=== PATIENT | female | born 1950 | race Caucasian/White ===

== ENCOUNTER 2023-01-20 14:44 | Outpatient (AMB) | payer MEDICARE, SELFPAY ==
[2023-01-20 14:53] VITALS: BP 140/80; PULSE 61; BMI 30.8
--- NOTE | 2023-01-20 14:53 | HO.NEPHOV ---
HPI HPI Comments History of Present Illness Details Keya was seen in the office in follow-up for acquired solitary kidney and history of renal stones. She has not been very good with keeping up good hydration. She denies taking excess sodium in the diet. She underwent nephrectomy in 1982 for renal cell cancer. She has not had any renal stones since her last office visit. She denies flank pain, hematuria, dysuria, pedal edema, chest pain, shortness of breath, proximal nocturnal dyspnea, orthopnea, pedal edema, weight loss, night sweats. Her kidney stones were calcium oxalate and she tries to maintain a low oxalate diet. She has not had any recent renal imaging. Her renal functions had been stable and the blood pressure is at goal. She is not on any hydrochlorothiazide or potassium citrate. [facility] Medical History (Updated 01/20/23 @ 15:24 by Rakesh Suarez MD) Renal cell cancer Nephrolithiasis Renal cyst Acquired solitary kidney Surgical History (Updated 01/20/23 @ 12:33 by Eleni Jimenez MA) History of nephrectomy Family History (Updated 01/20/23 @ 14:57 by Eleni Jimenez MA) Father Kidney stones (Updated 01/20/23 @ 14:56 by Eleni Jimenez MA) Alcohol intake: never Patient Tobacco Use Status: Never used Tobacco Vital Signs 01/20/23 14:53 Height 5 ft Weight 157 lb 8 oz BMI 30.8 BP 140/80 H Blood Pressure Location Lt brachial Position Sitting Pulse 61 Pulse Source Pulse Oximeter Physical Exam Vital Signs: Last Vital Signs Pulse 61 01/20/23 14:53 BP 140/80 H 01/20/23 14:53 BMI result Body Mass Index 30.8 Const General: comfortable and no acute distress Orientation/consciousness: patient oriented x3 HEENT Head: Yes normocephalic Mouth: Normal oral and palatal mucosa present Eyes EOM: EOMs intact bilaterally Neck Neck: Yes supple Resp Auscultation: clear to auscultation bilaterally Cardio Jugular venous distension: no JVD Rate: regular rate GI Palpation (GI): Soft to palpation Auscultation: normal bowel sounds General: Yes no CVA tenderness Back/Spine/Pelvis Back: no CVA tenderness Skin General skin exam: no rashes or lesions noted Neuro General: patient oriented x3 and moves all extremities Extrem General: Yes no pedal edema Assessment & Plan Assessment & Plan (1) Nephrolithiasis: Code(s): N20.0 - Calculus of kidney (2) Acquired solitary kidney: Code(s): Z90.5 - Acquired absence of kidney Plan Keya has acquired solitary kidney after nephrectomy for renal cell cancer in 1982. She had developed nephrolithiasis in her remaining solitary kidney. Her renal stone was calcium oxalate. She had had undergone 24 urine collections in the past. She is not taking any hydrochlorothiazide or potassium citrate. She is not good with maintaining good hydration which I encouraged. She should maintain low-sodium diet, minimize animal protein and increase fruits and vegetables in her diet. Her blood pressure has been at goal. I will order follow-up blood work and urine studies. I will arrange a follow-up renal ultrasound after next visit. She will need a 24 urine collection which I plan to do at the next office visit. All her and her 's questions were answered. Time spent for retrieving data, patient encounter and documentation 23 minutes. Orders: Orders Electrolytes 01/20/23 N20.0 - Calculus of kidney, Z90.5 - Acquired absence of kidney Blood Urea Nitrogen 01/20/23 N20.0 - Calculus of kidney, Z90.5 - Acquired absence of kidney Creatinine 01/20/23 N20.0 - Calculus of kidney, Z90.5 - Acquired absence of kidney Calcium 01/20/23 N20.0 - Calculus of kidney, Z90.5 - Acquired absence of kidney UA w Microscopic 01/20/23 N20.0 - Calculus of kidney, Z90.5 - Acquired absence of kidney Protein Creatinine Ratio, Ur 01/20/23 N20.0 - Calculus of kidney, Z90.5 - Acquired absence of kidney PTHI 01/20/23 N20.0 - Calculus of kidney, Z90.5 - Acquired absence of kidney Coding Level of Care Code Est Pt Level 3 (11496) Diagnoses Nephrolithiasis N20.0 Acquired solitary kidney Z90.5
== END 2023-01-20 15:44 | disposition home or self-care (01) ==
PROVIDERS: PCP Family Medicine; Visit Provider Internal Medicine Nephrology
DX: N20.0 Calculus of kidney (principal); Z90.5 Acquired absence of kidney
CPT/HCPCS: 99213

== ENCOUNTER → 2023-01-20 14:44 | Outpatient (BNVA) | payer MEDICARE, SELFPAY | PROVIDERS: PCP Family Medicine; Visit Provider Internal Medicine Nephrology | DX: N20.0 Calculus of kidney (principal); Z90.5 Acquired absence of kidney | CPT/HCPCS: 99212 ==

== ENCOUNTER 2023-08-11 11:58 | Outpatient (AMB) | payer MEDICARE, SELFPAY ==
--- NOTE | 2023-08-11 12:33 | HO.NEPHOV_ITS ---
Vital Signs 08/11/23 12:34 Height 5 ft Weight 156 lb 2 oz BMI 30.5 BP 108/70 Blood Pressure Location Lt brachial Position Sitting Pulse 54 Pulse Source Pulse Oximeter Pulse Oximetry (%) 98 Oxygen Delivery Method Room Air Intake Visit Reasons: Gout? Pt req sooner appt/ Conf Washer Repairman Required: No Accompanied by: Spouse Allergies No Known Allergies Allergy (Verified 08/11/23 12:38) HPI Comments Details: Keya was seen in the office in follow-up for acquired solitary kidney and history of renal stones. She recently had gout on her foot. Her uric acid was 6.6 and never had gout before. She has been better with keeping up good hydration. She denies taking excess sodium in the diet. She underwent nephrectomy in 1982 for renal cell cancer. She has not had any renal stones ( calcium oxalate) since her last office visit. She denies flank pain, hematuria, dysuria, pedal edema, chest pain, shortness of breath, proximal nocturnal dyspnea, orthopnea, pedal edema, weight loss, night sweats. she tries to maintain a low oxalate diet. She has not had any recent renal imaging. She had low vitamin D with high PTH levels. She is on Vitamin D replacement. Her renal functions had been stable and the blood pressure is at goal. She is not on any hydrochlorothiazide or potassium citrate. [facility] Medical History (Updated 08/11/23 @ 13:43 by Rakesh Suarez MD) Elevated hemoglobin A1c Prediabetes Renal cell cancer Nephrolithiasis Renal cyst Acquired solitary kidney Surgical History History of nephrectomy Family History Father Kidney stones Social History Alcohol intake: never Patient Tobacco Use Status: Never used Tobacco Physical Exam Vital Signs: Last Vital Signs Pulse 54 08/11/23 12:34 BP 108/70 08/11/23 12:34 Pulse Ox 98 08/11/23 12:34 Oxygen Delivery Method Room Air 08/11/23 12:34 BMI result Body Mass Index 30.5 Const General: comfortable and no acute distress Orientation/consciousness: patient oriented x3 HEENT Head: Yes normocephalic Mouth: Normal oral and palatal mucosa present Eyes EOM: EOMs intact bilaterally Neck Neck: Yes supple Resp Auscultation: clear to auscultation bilaterally Cardio Jugular venous distension: no JVD Rate: regular rate GI Palpation (GI): Soft to palpation Auscultation: normal bowel sounds General: Yes no CVA tenderness Back/Spine/Pelvis Back: no CVA tenderness Skin General skin exam: no rashes or lesions noted Neuro General: patient oriented x3 and moves all extremities Extrem General: Yes no pedal edema Results Reviewed Nephrology Results: No Data to Display Assessment & Plan Assessment & Plan (1) Acquired solitary kidney: Code(s): Z90.5 - Acquired absence of kidney Category: Medical (2) Nephrolithiasis: Code(s): N20.0 - Calculus of kidney Category: Medical (3) Hyperuricemia: Code(s): E79.0 - Hyperuricemia without signs of inflammatory arthritis and tophaceous disease Category: Medical Plan Keya has acquired solitary kidney after nephrectomy for renal cell cancer in 1982. She had developed nephrolithiasis in her remaining solitary kidney. Her renal stone was calcium oxalate. She had had undergone 24 urine collections in the past. She is not taking any hydrochlorothiazide or potassium citrate. She has improved her hydration which I encouraged to continue. She should maintain low-sodium diet, minimize animal protein and increase fruits and vegetables in her diet. Her blood pressure has been at goal. I will order follow-up blood work including uric acid. I asked her not to take NSAID's. I gave her 5 tablets of prednisone , in the event she has flar eup of gout. I shall start her on Allopurinol if she has ongoing hyper uricemia issues. She has Vitamin D deficiency which has been replaced. I shall look into her parathyroid if levels remain high even after Vitamin D has normalized. I will arrange a follow-up renal ultrasound after next visit. All her and her 's questions were answered. Orders: Orders Uric Acid Today N20.0 - Calculus of kidney, Z90.5 - Acquired absence of kidney Parathyroid Hormone Intact Today N20.0 - Calculus of kidney, Z90.5 - Acquired absence of kidney Creatinine Today N20.0 - Calculus of kidney, Z90.5 - Acquired absence of kidney Blood Urea Nitrogen Today N20.0 - Calculus of kidney, Z90.5 - Acquired absence of kidney Electrolytes Today N20.0 - Calculus of kidney, Z90.5 - Acquired absence of kidney Calcium Today N20.0 - Calculus of kidney, Z90.5 - Acquired absence of kidney Vitamin D 25-OH Total Today N20.0 - Calculus of kidney, Z90.5 - Acquired absence of kidney Medications: New prednisone 20 mg PO DAILY 5 days 5 tabs 0RF Coding Level of Care Code Est Pt Level 4 (12990) Diagnoses Acquired solitary kidney Z90.5 Nephrolithiasis N20.0 Hyperuricemia E79.0
[2023-08-11 12:34] VITALS: BP 108/70; PULSE 54; O2SAT 98; BMI 30.5
== END 2023-08-11 13:00 | disposition home or self-care (01) ==
PROVIDERS: PCP Family Medicine; Visit Provider Internal Medicine Nephrology
DX: Z90.5 Acquired absence of kidney (principal); N20.0 Calculus of kidney; E79.0 Hyperuricemia without signs of inflammatory arthritis and tophaceous disease
CPT/HCPCS: 99214

== ENCOUNTER → 2023-08-11 11:58 | Outpatient (BNVA) | payer MEDICARE, SELFPAY | PROVIDERS: PCP Family Medicine; Visit Provider Internal Medicine Nephrology | DX: N20.0 Calculus of kidney (principal); E79.0 Hyperuricemia without signs of inflammatory arthritis and tophaceous disease; Z85.528 Personal history of other malignant neoplasm of kidney; Z90.5 Acquired absence of kidney | CPT/HCPCS: 99212 ==

== ENCOUNTER 2024-01-19 13:30 | Outpatient (AMB) | payer MEDICARE, SELFPAY ==
--- NOTE | 2024-01-19 13:37 | HO.NEPHOV_ITS ---
Vital Signs 01/19/24 13:38 Height 5 ft Weight 158 lb 8 oz BMI 31.0 BP 134/68 Blood Pressure Location Lt brachial Position Sitting Pulse 52 Pulse Source Pulse Oximeter Pulse Oximetry (%) 92 Oxygen Delivery Method Room Air Intake Visit Reasons: 1 yr fu w/ labs-Conf Public Health Social Worker Required: No Accompanied by: Spouse Allergies No Known Allergies Allergy (Verified 01/19/24 13:38) HPI Comments Details: Keya was seen in the office in follow-up for acquired solitary kidney and history of renal stones. She recently had gout on her foot. Her uric acid was 6.6 and never had gout before. She has been better with keeping up good hydration. She denies taking excess sodium in the diet. She underwent nephrectomy in 1982 for renal cell cancer. She has not had any renal stones ( calcium oxalate) since her last office visit. She denies flank pain, hematuria, dysuria, pedal edema, chest pain, shortness of breath, proximal nocturnal dyspnea, orthopnea, pedal edema, weight loss, night sweats. she tries to maintain a low oxalate diet. She has not had any recent renal imaging. She had low vitamin D. She is on Vitamin D replacement. Her renal functions had been stable and the blood pressure is at goal. She is not on any hydrochlorothiazide or potassium citrate [facility] Medical History (Updated 08/11/23 @ 13:43 by Rakesh Suarez MD) Elevated hemoglobin A1c Prediabetes Renal cell cancer Nephrolithiasis Renal cyst Acquired solitary kidney Surgical History History of nephrectomy Family History Father Kidney stones Social History Alcohol intake: never Patient Tobacco Use Status: Never used Tobacco Review of Systems Const All systems reviewed & are unremarkable except as noted in HPI and below Physical Exam Const General: comfortable and no acute distress Orientation/consciousness: patient oriented x3 HEENT Head: Yes normocephalic Mouth: Normal oral and palatal mucosa present Eyes EOM: EOMs intact bilaterally Neck Neck: Yes supple Resp Auscultation: clear to auscultation bilaterally Cardio Jugular venous distension: no JVD Rate: regular rate GI Palpation (GI): Soft to palpation Auscultation: normal bowel sounds General: Yes no CVA tenderness Back/Spine/Pelvis Back: no CVA tenderness Skin General skin exam: no rashes or lesions noted Neuro General: patient oriented x3 and moves all extremities Extrem General: Yes no pedal edema Results Reviewed Nephrology Results: No Data to Display Assessment & Plan Assessment & Plan (1) Acquired solitary kidney: Code(s): Z90.5 - Acquired absence of kidney Category: Medical (2) Nephrolithiasis: Code(s): N20.0 - Calculus of kidney Category: Medical (3) Hyperuricemia: Code(s): E79.0 - Hyperuricemia without signs of inflammatory arthritis and tophaceous disease Category: Medical Plan Keya has acquired solitary kidney after nephrectomy for renal cell cancer in 1982. She had developed nephrolithiasis in her remaining solitary kidney. Her renal stone was calcium oxalate. She had had undergone 24 urine collections in the past. She is not taking any hydrochlorothiazide or potassium citrate. She has improved her hydration which I encouraged to continue. She should maintain low-sodium diet, minimize animal protein and increase fruits and vegetables in her diet. Her blood pressure has been at goal. Her uric acid is better . I asked her not to take NSAID's. I shall start her on Allopurinol if she has ongoing hyper uricemia issues. She has Vitamin D deficiency is being replaced. I will arrange a follow-up renal ultrasound after next visit. All her and her 's questions were answered Orders: Orders Uric Acid 1 Year E79.0 - Hyperuricemia without signs of inflammatory arthritis and tophaceous disease, N20.0 - Calculus of kidney, Z90.5 - Acquired absence of kidney Creatinine 1 Year E79.0 - Hyperuricemia without signs of inflammatory arthritis and tophaceous disease, N20.0 - Calculus of kidney, Z90.5 - Acquired absence of kidney Electrolytes 1 Year E79.0 - Hyperuricemia without signs of inflammatory arthritis and tophaceous disease, N20.0 - Calculus of kidney, Z90.5 - Acquired absence of kidney Calcium 1 Year E79.0 - Hyperuricemia without signs of inflammatory arthritis and tophaceous disease, N20.0 - Calculus of kidney, Z90.5 - Acquired absence of kidney Protein Creatinine Ratio, Ur 1 Year E79.0 - Hyperuricemia without signs of inflammatory arthritis and tophaceous disease, N20.0 - Calculus of kidney, Z90.5 - Acquired absence of kidney Blood Urea Nitrogen 1 Year E79.0 - Hyperuricemia without signs of inflammatory arthritis and tophaceous disease, N20.0 - Calculus of kidney, Z90.5 - Acquired absence of kidney Coding Level of Care Code Est Pt Level 4 (46295) Diagnoses Acquired solitary kidney Z90.5 Nephrolithiasis N20.0 Hyperuricemia E79.0
[2024-01-19 13:38] VITALS: BP 134/68; PULSE 52; O2SAT 92; BMI 31.0
== END 2024-01-19 14:03 | disposition home or self-care (01) ==
PROVIDERS: PCP Family Medicine; Visit Provider Internal Medicine Nephrology
DX: Z90.5 Acquired absence of kidney (principal); N20.0 Calculus of kidney
CPT/HCPCS: 99214

== ENCOUNTER → 2024-01-19 13:30 | Outpatient (BNVA) | payer MEDICARE, SELFPAY | PROVIDERS: PCP Family Medicine; Visit Provider Internal Medicine Nephrology | DX: Z90.5 Acquired absence of kidney (principal); N20.0 Calculus of kidney; E79.0 Hyperuricemia without signs of inflammatory arthritis and tophaceous disease | CPT/HCPCS: 99212 ==

== ENCOUNTER 2025-02-16 15:19 | Outpatient (REF) | payer MEDICARE, SELFPAY | END 2025-02-16 15:20 | disposition home or self-care (01) | LOC: HO.HKASLDS 15:19 | PROVIDERS: PCP Family Medicine; Visit Provider Internal Medicine Nephrology | DX: R80.8 Other proteinuria (principal); Z90.5 Acquired absence of kidney | CPT/HCPCS: 99212 ==

== ENCOUNTER 2025-02-16 15:19 | Outpatient (AMB) | payer MEDICARE, SELFPAY ==
--- NOTE | 2025-02-16 15:48 | HO.NEPHOV ---
Vital Signs 02/16/25 15:49 Height 5 ft Weight 167 lb BMI 32.6 BP 150/80 H Blood Pressure Location Lt brachial Position Sitting Pulse 56 Pulse Source Pulse Oximeter Pulse Oximetry (%) 99 Oxygen Delivery Method Room Air Intake Visit Reasons: 1yr follow up-Conf Metallurgical Analyst Required: No Accompanied by: Spouse Allergies No Known Allergies Allergy (Verified 02/16/25 15:49) HPI Comments Details: Keya was seen in the office in follow-up for acquired solitary kidney and history of renal stones. She has H/O gout. She has been better with keeping up good hydration. She denies taking excess sodium in the diet. She underwent nephrectomy in 1982 for renal cell cancer. She has not had any renal stones ( calcium oxalate) since her last office visit. She denies flank pain, hematuria, dysuria, pedal edema, chest pain, shortness of breath, proximal nocturnal dyspnea, orthopnea, pedal edema, weight loss, night sweats. she tries to maintain a low oxalate diet. She has not had any recent renal imaging. Her renal functions had been stable but has been having some proteinuria. She is not on any hydrochlorothiazide or potassium citrate [facility] Medical History (Updated 02/16/25 @ 20:15 by Rakesh Suarez MD) Elevated hemoglobin A1c Prediabetes Renal cell cancer Nephrolithiasis Renal cyst Acquired solitary kidney Surgical History History of nephrectomy Family History Father Kidney stones Social History Alcohol intake: never Patient Tobacco Use Status: Never used Tobacco Review of Systems Const All systems reviewed & are unremarkable except as noted in HPI and below Physical Exam Vital Signs: Last Vital Signs Pulse 56 02/16/25 15:49 BP 150/80 H 02/16/25 15:49 Pulse Ox 99 02/16/25 15:49 Oxygen Delivery Method Room Air 02/16/25 15:49 BMI result Body Mass Index 32.6 Const General: comfortable and no acute distress Orientation/consciousness: patient oriented x3 HEENT Head: Yes normocephalic Mouth: Normal oral and palatal mucosa present Eyes EOM: EOMs intact bilaterally Neck Neck: Yes supple Resp Auscultation: clear to auscultation bilaterally Cardio Jugular venous distension: no JVD Rate: regular rate GI Palpation (GI): Soft to palpation Auscultation: normal bowel sounds General: Yes no CVA tenderness Back/Spine/Pelvis Back: no CVA tenderness Skin General skin exam: no rashes or lesions noted Neuro General: patient oriented x3 and moves all extremities Extrem General: Yes no pedal edema Assessment & Plan Assessment & Plan (1) Acquired solitary kidney: Code(s): Z90.5 - Acquired absence of kidney Category: Medical (2) Proteinuria: Code(s): R80.9 - Proteinuria, unspecified Category: Medical Qualifiers: Proteinuria type: other Qualified Code(s): R80.8 - Other proteinuria Plan Keya has acquired solitary kidney after nephrectomy for renal cell cancer in 1982. She had developed nephrolithiasis in her remaining solitary kidney. Her renal stone was calcium oxalate. She had undergone 24 urine collections in the past. She is not taking any hydrochlorothiazide or potassium citrate. She has improved her hydration which I encouraged to continue. She should maintain low-sodium diet, minimize animal protein and increase fruits and vegetables in her diet. Her blood pressure has been at goal. I asked her not to take NSAID's. I have ordered 24 hour urine for protein as she is at risk for hyperfiltration. She will need further W/U if she has protienuria in addition to initiation of ACEI/ARB. I shall start her on Allopurinol if she has ongoing hyper uricemia issues. She has Vitamin D deficiency which was replaced. I will arrange a follow-up renal ultrasound after next visit. All her and her 's questions were answered Orders: Orders Protein, 24 Hr Urine Group 3 Months R80.9 - Proteinuria, unspecified, Z90.5 - Acquired absence of kidney Coding Level of Care Code Est Pt Level 4 (47106) Diagnoses Acquired solitary kidney Z90.5 Other proteinuria R80.8 Proteinuria type: other
[2025-02-16 15:49] VITALS: BP 150/80; PULSE 56; O2SAT 99; BMI 32.6
--- OUTSIDE RECORDS SUMMARY | 2025-02-16 22:53 | XMS_ITS ---
Author Name [facility] Organization Unknown History of Medication Use Medication Directions Dispensed Refills Start Date End Date Stat us betamethasone acetate-betamethason e sodium phosphate (CELESTONE) injection 12 mg 12 mg, Intra-articular, Once PRN Procedure, Starting on Thu07/26/24 at 1330, For 1 dose 07/26/2024 07/26/2024 completed rosuvastatin (CRESTOR) 10 MG tablet Take 1 tablet by mouth every evening. active Vitamin D3 (CHOLECALCIFEROL) 50 MCG (1999 [place]) capsule Take 1 capsule by mouth daily. active Problems Problem Status Onset Date Problem Type Date of Resoluti on Source Trochanteric bursitis of right hip active EncounterDiagnosisAct CCT Encounters Encounter Type Encounter Reason Primary Diagnosis Location Date Ambulatory Trochanteric bursitis, right hip Trochanteric bursitis, right hip [place] [facility] 10/18/2024 Ambulatory [place] [facility] 07/26/2024 Ambulatory Trochanteric bursitis, right hip Trochanteric bursitis, right hip [place] [facility] 07/26/2024 Ambulatory [place] [facility] 06/29/2024 Ambulatory [facility] 06/21/2024 Ambulatory [facility] 06/21/2024 Ambulatory [place] [facility] 12/30/2023 Ambulatory Cataract Cataract [facility] 12/09/2023 Ambulatory CREATE 1 Age-related nuclear cataract right eye [facility] [place] 12/01/2023 Ambulatory MODIFY Age-related nucl ear cataract Left eye [facility] [place] 11/24/2023 Care Team Organization Name Specialty Phone Email Start Date End [place] te [facility] 07/01/2024 11/16/2024 [place] [facility] 12/30/2023 [facility] 12/09/2023 11/16/2024 [facility] 11/20/2023 [facility] [place] 10/30/2023
--- OUTSIDE RECORDS SUMMARY | 2025-02-16 22:53 | XMS_ITS | Clinical Summary ---
Author Organization [facility] Address [address] [place] [address] Care Team Providers Care Slab Polisher Name Role Phone Patrice Clayton MD Primary Care Provider [phone] Allergies No known active allergies Medications Vitamin D3 (CHOLECALCIFERO L) 50 MCG (1999) capsule Take 1 capsule by mouth daily. Active rosuvastatin (CRESTOR) 10 MG tablet Take 1 tablet by mouth every evening. Active Active Problems No known active problems Social History Tobacco Use Types Packs/Day Years Used Date Smoking Tobacco: Never Assessed Comments Unknown Sex and Gender Information Value Date Recorded Sex Assigned at Female 07/24/2024 10:32 AM EDT Legal Sex Female 10:52 AM EST Gender Identity Female 07/24/2024 10:32 AM EDT Sexual Orientation Heterosexual (straight) 07/24 10:32 AM EDT Last Filed Vital Signs Vital Sign Reading Time Taken Comments Blood Pressure - - Pulse - - Temperature - - Respiratory Rate - - Oxygen Saturation - - Inhaled Oxygen Concentration - - Weight 72.6 kg (160 lb) 07/28/2024 10:03 PM EDT Height 152.4 cm (5') 07/28/2024 10:03 PM EDT Body Mass Index 31.25 07/28/2024 10:03 PM EDT Plan of Treatment Health Maintenance Due Date Last Done Comments Advance Care Planning 1950 Hepatitis C Virus Screening 1950 DTaP/Tdap/Td Vaccines (1 - Tdap) 1969 Mammogram 1990 Colonoscopy 10/10/1995 Pneumococcal Vaccines 50+ (1 of 1 - PCV) 2000 Zoster (Shingles) Vaccine (1 of 2) 2000 DXA Bone Density (Females,Ages 65 and older) 10/08/2022 10/08/2020 Influenza Vaccine 10/07/2024 03/16/2024 COVID-19 Vaccine (3 - 2024-2 6 season) 2024 06/08/2020, 05/18/2020 RSV Vaccine 50 years and older and Patients (1 - 1-dose 75+ series) 2025 Hepatitis B Vaccines Aged Out No long er eligible based on patient's age to complete this topic Insurance MEDICARE PART A & B [facility] MEDICARE PART A & B Care Teams Slab Polisher Relationship Specialty Start Date End Date Patrice Clayton MD [address] [address] PCP - General Family Medicine 12/30/23
--- OUTSIDE RECORDS SUMMARY | 2025-02-16 22:53 | XMS_ITS | Data Portability ---
Author Organization [facility], Main Office Address [address] [place] [address] Care Team Providers Care Plant Nursery Worker Name Role Phone NASRIN CASTELLANO Event Manager MORAGA DERMATOLOGY Machine Applicator Cementer BLAINE PRATER Engineering Group Manager AGA LAGUNAS Primary Care Provider KOURTNEY MOTA Cigar Inspector DAMIÁN SUAREZ Breaking Machine Operator YUMIKO RUTLEDGE Digital Intern NASRIN SOL Die Welder Assessment Encounter Date Assessment Date Assessment LastModified by Organization Details LastModified Time 11/12/2023 11/12/2023 Patient is at lo w risk for cardiopulmonary complications with planned procedure based on comorbidities, good exertional tolerance and overall procedure risk. Patient advised to avoid aspirin for 14 days and NSAIDS for 7 days prior. May proceed to scheduled surgery as planned. 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 The exam findings appear more consistent with right hip impingement and gluteal tendinopathy, which are her most bothersome symptoms at this time. I am referring her to orthopedics to evaluate for possible injection therapy, and I also recommended initiating physical therapy. Her knee is not currently a significant source of discomfort, so we will monitor it for now. However, I still advised her to establish care with orthopedics in case injection therapy is needed in the future. Due to her mild renal impairment, we are limiting NSAID use as much as possible. She also reports anterior thigh pain with a burning sensation. To assess for a possible hernia, I have ordered a right hip/groin ultrasound. Her blood pressure today was borderline; she brought in four recent readings, which were quite variable. However, she did not bring her home cuff, so accuracy could not be verified. Her current readings remain within JNC 8 guidelines, so we will monitor for now. If future readings through [facility] trend high, adjustments to her treatment plan may be necessary. I advised her to bring her home blood pressure cuff to her next visit to assess accuracy. We will follow up in September, and I reminded her to bring the cuff at that time. We also discussed lifestyle modifications, including gradual improvements in her diet and increased physical activity, which should help with blood pressure control. Additionally, she has a known leg length discrepancy, with the right leg shorter than the left. Fortunately, her X-ray showed no evidence of dislocation or fracture. This discrepancy may be contributing to her symptoms. I recommended that she consider seeing a cloth mercerizer operator to evaluate for potential benefit from shoe inserts or orthotics. [email or web address] Not available 06/06/2024 17:19:24 09/13/2024 09/13/2024 Hypertension: -Continue monitoring off anti hypertensive. -Blood pressure is well controlled both at home and in the office. Home cuff was compared. -Reinforced lifestyle measures: regular exercise and salt restriction. -Will reassess at her upcoming physical exam. Musculoskeletal Pain: -Under orthopedic care for hip and knee pain. -Physical therapy to be initiated. -Referral to podiatry provided for further evaluation of limb length discrepancy. [email or web address] Not available 09/14/2024 08:12:37 Plan of Treatment Reminders Order Date Submit Date Provider Last Modified By Organization Details Last Modified Time Details Appointments [id number] 2025 02:00P M Aga Lagunas MD Not available Not available Not available Lab HbA1c (hemoglob in A1c), blood 2024 025 RONNY [facility] (Centralized Electronic Ordering - All Locations), Patient Can Go To The Location Of Their Choice, [id number] 03/17/2024 06:08:16 TSH, ultra-sen sitive, serum 01/08/ 2025 01/08/2 025 RONNY [facility] (Centralized Electronic Ordering - All Locations), Patient Can Go To The Location Of Their Choice, 03/17/2024 06:08:17 CMP, serum or plasma 2024 025 RONNY [facility] (Centralized Electronic Ordering - All Locations), Patient Can Go To The Location Of Their Choice, 03/17/2024 06:08:15 lipid panel, serum 2024 025 RONNY [facility] (Centralized Electronic Ordering - All Locations), Patient Can Go To The Location Of Their Choice, 03/17/2024 06:08:16 CBC w/ auto diff 2023 024 RONNY [facility] (Centralized Electronic Ordering - All Locations), Patient Can Go To The Location Of Their Choice, 11/13/2023 06:09:16 BMP, serum or plasma 2023 024 RONNY [facility] (Centralized Electronic Ordering - All Locations), Patient Can Go To The Location Of Their Choice, 11/13/2023 06:09:17 anaplasma phagocyto philum + ehrlichia chaffeens is IgG panel, titer, serum 2023 024 RONNY [facility] (Centralized Electronic Ordering - All Locations), Patient Can Go To The Location Of Their Choice, 08/07/2023 14:07:35 borrelia burgdorfe ri IgG + IgM + total panel, IA, serum 2023 024 RONNY [facility] (Centralized Electronic Ordering - All Locations), Patient Can Go To The Location Of Their Choice, 08/04/2023 11:28:15 BMP, serum or plasma 2023 024 RONNY [facility] (Centralized Electronic Ordering - All Locations), Patient Can Go To The Location Of Their Choice, 08/07/2023 14:07:33 uric acid, serum or plasma 2023 024 RONNY [facility] (Centralized Electronic Ordering - All Locations), Patient Can Go To The Location Of Their Choice, 08/07/2023 14:07:35 CBC w/ auto diff 2023 024 CALVIN [facility] (Centralized Electronic Ordering - All Locations), Patient Can Go To The Location Of Their Choice, [id number] 08/07/2023 14:07:34 Referral podiatris t referral 2024 025 [facility], [address], [address], [place], [address], 09/15/2024 14:17:44 physical therapist referral - Suspected hip impingeme nt, demonstra david by long stride test and fabers, some gluteal tendinopa thy. 2024 025 [email or web address] Not available 10/06/2024 09:38:52 orthopedi c surgeon referral 2024 025 CALVIN [facility], [address], [address], [place], [address], 07/29/2024 08:21:05 care managemen t referral - Please set up RPM with BP monitor 2024 025 [email or web address] 5 [facility], [address], [address], [place], [address], 06/07/2024 15:54:48 gastroent erologist referral - Needs colon cancer screening 2024 025 [facility], [address], [place], [address], 03/17/2024 10:01:08 nutrition ist/dieti james referral - hx nephrecto my, only one kidney. needs renal dietitian , pre diabetes, weight . 2023 024 [email or web address] Not available 08/04/2023 11:37:38 Procedures colonosco py screening (PROC) 2024 025 pura [facility], [address], [place], [address], 03/17/2024 09:38:48 Surgeries None recorded. Imaging US, buttock - US butt pelvis eval for right sided hernia. 2024 025 [facility] (Ultrasound), [address], [place], [address], 06/14/2024 09:18:49 XR, hip + pelvis, unilatera l, 2 or 3 view 2024 025 RONNY In-Office Order, Internal Use Only DO Not Attach Compendium DO Not Attach Compendium, Do Not Delete/merge, [id number] 03/17/2024 09:15:39 XR, knee, 3 view 2024 025 RONNY In-Office Order, Internal Use Only DO Not Attach Compendium DO Not Attach Compendium, Do Not Delete/merge, [id number] 03/16/2024 19:45:50 XR, knee, 3 view 2024 025 RONNY In-Office Order, Internal Use Only DO Not Attach Compendium DO Not Attach Compendium, Do Not Delete/merge, [id number] 03/16/2024 19:47:31 electroca rdiogram 2023 024 [email or web address] In-Office Order, Internal Use Only DO Not Attach Compendium DO Not Attach Compendium, Do Not Delete/merge, [id number] 11/12/2023 09:13:17 Medication Orders None recorded. Patient TargetsNo targets recorded. Patient Instructions Encounter Date Encounter Id Patient Instructions Last Modified By Organization Details Last Modified Time 08/04/2023 [id number] When You Want to Lose Weight: Care Instructions [email or web address] Not available 08/04/2023 11:35:16 Nutrition Referral and Weight Management Follow-up Information [email or web address] Not available 08/04/2023 11:35:16 purine-restricte d diet: care instructions [email or web address] Not available 08/04/2023 11:31:11 To call or retur n for worsening or concerns [email or web address] Not available 08/04/2023 11:28:19 03/16/2024 [id number] advance care planning: care instructions [email or web address] Not available 03/16/2024 12:13:11 restless legs syndrome: care instructions [email or web address] Not available 03/16/2024 12:13:10 high cholesterol : care instructions [email or web address] Not available 03/16/2024 12:13:11 preventing falls : care instructions [email or web address] Not available 03/16/2024 12:13:10 well visit, over 65: care instructions [email or web address] Not available 03/16/2024 12:13:11 learning about colon cancer [email or web address] Not available 03/16/2024 12:13:10 Reason for Referral Cane Packer/dietitian Refer ral for Body mass index 25-29 - overweight hx nephrectomy, only one kidney. needs renal dietitian, pre diabetes, weight . Referring Physician: [facility], Encounter Date: 08/04/2023 Event Manager Referral for Screening for malignant neoplasm of colon Needs colon cancer screening Referring Physician: Aga Lagunas [facility], Encounter Date: 03/16/2024 Please set up RPM with BP tiana san Referring Physician: Aga Lagunas [facility], Encounter Date: 06/06/2024 Physical Therapist Referral for Pain of right hip joint Suspected hip impingement, demonstrated by long stride test and fabers, some gluteal tendinopathy. Referring Physician: Aga Laguans [facility] Arlene, Encounter Date: 06/06/2024 Orthopedic Surgeon Referral for Pain of right hip joint Referring Physician: Aga Lagunas [facility] Arlene, Encounter Date: 06/06/2024 Wildlife Conservation Professor Referral for Leg length inequality Referring Physician: Aga Lagunas [facility] Arlene, Encounter Date: 09/13/2024 Results Created Date Observation Date Name Description Value Unit Range Abnormal Flag Note LastModifiedBy Organization Detail LastModifiedTime 08/04/19 24 08/04/2023 BMP7+ EGFR glucose 89 mg/dL 70-99 Not Available [facility] ([facility]) [address], [place], [address], 08/07/2023 14:07:33 08/04/19 24 08/04/2023 BMP7+ EGFR BUN 18 mg/dL 8-27 Not Available [facility] ([facility]) [address], [place], [address], 08/07/2023 14:07:33 08/04/19 24 08/04/2023 BMP7+ EGFR creatinine 0.90 mg/dL 0.57-1 .00 Not Available [facility] ([facility]) [address], [place], [address], 08/07/2023 14:07:33 08/04/19 24 08/04/2023 BMP7+ EGFR eGFR 68 mL/mi n/1.7 3 >59 Not Available [facility] ([facility]) [address], [place], [address], 08/07/2023 14:07:33 08/04/19 24 08/04/2023 BMP7+ EGFR sodium 141 mmol/ L 134-14 4 Not Available [facility] ([facility]) [address], [place], [address], 08/07/2023 14:07:33 08/04/19 24 08/04/2023 BMP7+ EGFR potassium 4.6 mmol/ L 3.5-5. 2 Not Available [facility] ([facility]) [address], [place], [address], 08/07/2023 14:07:33 08/04/19 24 08/04/2023 BMP7+ EGFR chloride 103 mmol/ L 96-106 Not Available [facility] ([facility]) [address], [place], [address], 08/07/2023 14:07:33 08/04/19 24 08/04/2023 BMP7+ EGFR carbon dioxide, total 23 mmol/ L 20-29 Not Available [facility] ([facility]) [address], [place], [address], 08/07/2023 14:07:33 08/04/19 24 08/04/2023 CBC WITH DIFFE RENTI AL/PL ATELE T WBC 6.4 x10e3 /uL 3.4-10 .8 Not Available [facility] ([facility]) [address], [place], [address], 08/07/2023 14:07:34 08/04/19 24 08/04/2023 CBC WITH DIFFE RENTI AL/PL ATELE T RBC 4.55 x10e6 /uL 3.77-5 .28 Not Available [facility] ([facility]) [address], [place], [address], 08/07/2023 14:07:34 08/04/1908/04/2023 CBC WITH DIFFE RENTI AL/PL ATELE T hemoglobin 13.3 g/dL 11.1-1 5.9 Not Available [facility] ([facility]) [address] [place], [address], 08/07/2023 14:07:34 08/04/19 24 08/04/2023 CBC WITH DIFFE RENTI AL/PL ATELE T hematocrit 42.2 % 34.0-4 6.6 Not Available [facility] ([facility]) [address] [place], [address], 08/07/2023 14:07:34 08/04/19 24 08/04/2023 CBC WITH DIFFE RENTI AL/PL ATELE T MCV 93 fL 79-97 Not Available [facility] ([facility]) [address] [place], [address], 08/07/2023 14:07:34 08/04/19 24 08/04/2023 CBC WITH DIFFE RENTI AL/PL ATELE T MCH 29.2 pg 26.6-3 3.0 Not Available [facility] ([facility]) [address] [place], [address], 08/07/2023 14:07:34 08/04/19 24 08/04/2023 CBC WITH DIFFE RENTI AL/PL ATELE T MCHC 31.5 g/dL 31.5-3 5.7 Not Available [facility] ([facility]) [address], [place], [address], 08/07/2023 14:07:34 08/04/19 24 08/04/2023 CBC WITH DIFFE RENTI AL/PL ATELE T RDW 12.8 % 11.7-1 5.4 Not Available [facility] ([facility]) [address], [place], [address], 08/07/2023 14:07:34 08/04/19 24 08/04/2023 CBC WITH DIFFE RENTI AL/PL ATELE T platelets 264 x10e3 /uL 150-45 0 Not Available [facility] ([facility]) [address], [place], [address], 08/07/2023 14:07:34 08/04/19 24 08/04/2023 CBC WITH DIFFE RENTI AL/PL ATELE T neutrophils 74 % not estab. Not Available [facility] ([facility]) [address], [place], [address], 08/07/2023 14:07:34 08/04/19 24 08/04/2023 CBC WITH DIFFE RENTI AL/PL ATELE T lymphs 16 % not estab. Not Available [facility] ([facility]) [address], [place], [address], 08/07/2023 14:07:34 08/04/19 24 08/04/2023 CBC WITH DIFFE RENTI AL/PL ATELE T monocytes 7 % not estab. Not Available [facility] ([facility]) [address], [place], [address], 08/07/2023 14:07:34 08/04/19 24 08/04/2023 CBC WITH DIFFE RENTI AL/PL ATELE T eos 2 % not estab. Not Available [facility] ([facility]) [address], [place], [address], 08/07/2023 14:07:34 08/04/19 24 08/04/2023 CBC WITH DIFFE RENTI AL/PL ATELE T basos 1 % not estab. Not Available [facility] ([facility]) [address], [place], [address], 08/07/2023 14:07:34 08/04/19 24 08/04/2023 CBC WITH DIFFE RENTI AL/PL ATELE T immature cells FLUSH TESTER Not Available [facility] ([facility]) [address], [place], [address], 08/07/2023 14:07:34 08/04/19 24 08/04/2023 CBC WITH DIFFE RENTI AL/PL ATELE T neutrophils (absolute) 4.8 x10e3 /uL 1.4-7. 0 Not Available [facility] ([facility]) [address], [place], [address], 08/07/2023 14:07:34 08/04/19 24 08/04/2023 CBC WITH DIFFE RENTI AL/PL ATELE T lymphs (absolute) 1.0 x10e3 /uL 0.7-3. 1 Not Available [facility] ([facility]) [address], [place], [address], 08/07/2023 14:07:34 08/04/19 24 08/04/2023 CBC WITH DIFFE RENTI AL/PL ATELE T monocytes(ab solute) 0.4 x10e3 /uL 0.1-0. 9 Not Available [facility] ([facility]) [address] [place], [address], 08/07/2023 14:07:34 08/04/19 24 08/04/2023 CBC WITH DIFFE RENTI AL/PL ATELE T eos (absolute) 0.1 x10e3 /uL 0.0-0. 4 Not Available [facility] ([facility]) [address], [place], [address], 08/07/2023 14:07:34 08/04/19 24 08/04/2023 CBC WITH DIFFE RENTI AL/PL ATELE T baso (absolute) 0.0 x10e3 /uL 0.0-0. 2 Not Available [facility] ([facility]) [address], [place], [address], 08/07/2023 14:07:34 08/04/19 24 08/04/2023 CBC WITH DIFFE RENTI AL/PL ATELE T immature granulocytes 0 % not estab. Not Available [facility] ([facility]) [address], [place], [address], 08/07/2023 14:07:34 08/04/19 24 08/04/2023 CBC WITH DIFFE RENTI AL/PL ATELE T immature grans (abs) 0.0 x10e3 /uL 0.0-0. 1 Not Available [facility] ([facility]) [address], [place], [address], 08/07/2023 14:07:34 08/04/19 24 08/04/2023 CBC WITH DIFFE RENTI AL/PL ATELE T NRBC FLUSH TESTER Not Available [facility] ([facility]) [address], [place], [address], 08/07/2023 14:07:34 08/04/19 24 08/04/2023 CBC WITH DIFFE RENTI AL/PL ATELE T hematology comments: FLUSH TESTER Not Available [facility] ([facility]) [address], [place], [address], 08/07/2023 14:07:34 08/04/19 24 08/04/2023 TICK- BORNE DISEA SE AB PROFI LE result comments: Commen t Antib peggy titer s may be negat po in the first 7-10 days of illne ss. A four- fold rise in IgG antib peggy titer s for Babes ia micro ti, Anapl asma phago cytop hilum , and/o r Ehrli víctor chaff eensi s in paire d sampl es (acut e and conva lesce nt) suppo rts the diagn osis of babes iosis , anapl asmos is, and/o r ehrli chios is, respe ctive ly. Not Available [facility] ([facility]) [address], [place], [address], 08/07/2023 14:07:34 08/04/19 24 08/05/2023 TICK- BORNE DISEA SE AB PROFI LE lyme total antibody fabio Negati ve negati ve Lyme antib odies not detec david. Refle x testi ng is not indic ated. No labor atory evide nce of infec tion with B. burgd orfer i (Lyme disea se). Negat po resul ts may occur in patie nts recen tly infec david (less than or equal to 14 days) with B. burgd orfer i. If recen t infec tion is suspe cted, repea t testi ng on a new sampl e colle cted in 7 to 14 days is recom antonina d. Not Available [facility] ([facility]) [address], [place], [address], 08/07/2023 14:07:34 08/04/19 24 08/06/2023 TICK- BORNE DISEA SE AB PROFI LE E. chaffeensis IgG Negati ve neg:<1 :64 Not Available [facility] ([facility]) [address] [place], [address], 08/07/2023 14:07:34 08/04/19 24 08/06/2023 TICK- BORNE DISEA SE AB PROFI LE A. phagocytophi lum IgG Negati ve neg:<1 :64 Not Available [facility] ([facility]) [address] [place], [address], 08/07/2023 14:07:34 08/04/19 24 08/07/2023 TICK- BORNE DISEA SE AB PROFI LE babesia microti IgG <1:10 neg:<1 :10 Not Available [facility] ([facility]) [address] [place], [address], 08/07/2023 14:07:34 08/04/19 24 08/05/2023 URIC ACID uric acid 6.6 mg/dL 3.1-7. 9 Thera peuti c targe t for gout patie nts: <6.0 Not Available [facility] ([facility]) [address] [place], [address], 08/07/2023 14:07:35 10/22/19 24 10/23/2023 BASIC METAB OLIC PANEL (8) glucose 101 mg/dL 70-99 above high normal Not Available [facility] ([facility]) [address] [place], [address], 10/23/2023 12:06:11 10/22/19 24 10/23/2023 BASIC METAB OLIC PANEL (8) BUN 18 mg/dL 8-27 normal Not Available [facility] ([facility]) [address] [place], [address], 10/23/2023 12:06:11 10/22/19 24 10/23/2023 BASIC METAB OLIC PANEL (8) creatinine 1.06 mg/dL 0.57-1 .00 above high normal Not Available [facility] ([facility]) [address] [place], [address], 10/23/2023 12:06:11 10/22/19 24 10/23/2023 BASIC METAB OLIC PANEL (8) eGFR 55 mL/mi n/1.7 3 >59 below low normal Not Available [facility] ([facility]) [address] [place], [address], 10/23/2023 12:06:11 10/22/19 24 10/23/2023 BASIC METAB OLIC PANEL (8) BUN/creatini ne ratio 17 12-28 normal Not Available [facility] ([facility]) [address] [place], [address], 10/23/2023 12:06:11 10/22/19 24 10/23/2023 BASIC METAB OLIC PANEL (8) sodium 141 mmol/ L 134-14 4 normal Not Available [facility] ([facility]) [address] [place], [address], 10/23/2023 12:06:11 10/22/19 24 10/23/2023 BASIC METAB OLIC PANEL (8) potassium 4.5 mmol/ L 3.5-5. 2 normal Not Available [facility] ([facility]) [address] [place], [address], 10/23/2023 12:06:11 10/22/19 24 10/23/2023 BASIC METAB OLIC PANEL (8) chloride 102 mmol/ L 96-106 normal Not Available [facility] ([facility]) [address] [place], [address], 10/23/2023 12:06:11 10/22/19 24 10/23/2023 BASIC METAB OLIC PANEL (8) carbon dioxide, total 21 mmol/ L 20-29 normal Not Available [facility] ([facility]) [address] [place], [address], 10/23/2023 12:06:11 10/22/19 24 10/23/2023 BASIC METAB OLIC PANEL (8) calcium 9.6 mg/dL 8.7-10 .3 normal Not Available [facility] ([facility]) [address] [place], [address], 10/23/2023 12:06:11 10/22/19 24 10/23/2023 HEMOG LOBIN A1C hemoglobin A1C 6.1 % 4.8-5. 6 above high normal Predi abete s: 5.7 - 6.4 Diabe radha: >6.4 Glyce eileen contr ol for adult s with diabe radha: <7.0 Not Available [facility] ([facility]) [address], [place], [address], 10/23/2023 12:06:12 10/22/19 24 10/23/2023 VITAM IN D, 25-HY DROXY vitamin D, 25-hydroxy 21.5 NG/mL 30.0-1 00.0 below low normal Vitam in D defic iency has been defin ed by the Insti tute of Medic ine and an Endoc rine Socie ty pract ice guide line as a level of serum 25-OH vitam in D less than 20 ng/mL (1,2) . The Endoc rine Socie ty went on to furth er defin e vitam in D insuf ficie ncy as a level betwe en 21 and 29 ng/mL (2). 1. IOM (Inst itute of Medic ine). 2009. Dieta ry refer ence intak es for calci um and D. Destini villeda [place]: [facility] . 2. Sarmad rubalcava MF, Maribel carney [place], Jazlyn off-F mer i FLAHERTY, et al. Evalu ation , treat ment, and preve ntion of vitam in D defic iency : an Endoc rine Socie ty clini juan pract ice guide line. JCEM. 2010; 96(7) :1911 -30. Not Available [facility] ([facility]) [address], [place], [address], 10/23/2023 12:06:13 11/12/19 24 11/13/2023 CBC WITH DIFFE RENTI AL/PL ATELE T WBC 5.8 x10e3 /uL 3.4-10 .8 normal Not Available [facility] ([facility]) [address] [facility] [address], [place], [address], 11/13/2023 06:09:16 11/12/19 24 11/13/2023 CBC WITH DIFFE RENTI AL/PL ATELE T RBC 4.38 x10e6 /uL 3.77-5 .28 normal Not Available [facility] ([facility]) [address] [facility], [place], [address], 11/13/2023 06:09:16 11/12/19 24 11/13/2023 CBC WITH DIFFE RENTI AL/PL ATELE T hemoglobin 13.2 g/dL 11.1-1 5.9 normal Not Available [facility] ([facility]) [address] [facility], [place], [address], 11/13/2023 06:09:16 11/12/19 24 11/13/2023 CBC WITH DIFFE RENTI AL/PL ATELE T hematocrit 41.0 % 34.0-4 6.6 normal Not Available [facility] ([facility]) [address] [facility], [place], [address], 11/13/2023 06:09:16 11/12/19 24 11/13/2023 CBC WITH DIFFE RENTI AL/PL ATELE T MCV 94 fL 79-97 normal Not Available [facility] ([facility]) [address] [place], [address], 11/13/2023 06:09:16 11/12/19 24 11/13/2023 CBC WITH DIFFE RENTI AL/PL ATELE T MCH 30.1 pg 26.6-3 3.0 normal Not Available [facility] ([facility]) [address] [place], [address], 11/13/2023 06:09:16 11/12/19 24 11/13/2023 CBC WITH DIFFE RENTI AL/PL ATELE T MCHC 32.2 g/dL 31.5-3 5.7 normal Not Available [facility] ([facility]) [address] [place], [address], 11/13/2023 06:09:16 11/12/19 24 11/13/2023 CBC WITH DIFFE RENTI AL/PL ATELE T RDW 12.8 % 11.7-1 5.4 Not Available [facility] ([facility]) [address] [facility], [place], [address], 11/13/2023 06:09:16 11/12/19 24 11/13/2023 CBC WITH DIFFE RENTI AL/PL ATELE T platelets 234 x10e3 /uL 150-45 0 normal Not Available [facility] ([facility]) [address] [facility], [place], [address], 11/13/2023 06:09:16 11/12/19 24 11/13/2023 CBC WITH DIFFE RENTI AL/PL ATELE T neutrophils 71 % not estab. normal Not Available [facility] ([facility]) [address] [facility], [place], [address], 11/13/2023 06:09:16 11/12/19 24 11/13/2023 CBC WITH DIFFE RENTI AL/PL ATELE T lymphs 19 % not estab. normal Not Available [facility] ([facility]) [address] [facility], [place], [address], 11/13/2023 06:09:16 11/12/19 24 11/13/2023 CBC WITH DIFFE RENTI AL/PL ATELE T monocytes 7 % not estab. normal Not Available [facility] ([facility]) [address] [facility], [place], [address], 11/13/2023 06:09:16 11/12/19 24 11/13/2023 CBC WITH DIFFE RENTI AL/PL ATELE T eos 2 % not estab. normal Not Available [facility] ([facility]) [address] [facility], [place], [address], 11/13/2023 06:09:16 11/12/19 24 11/13/2023 CBC WITH DIFFE RENTI AL/PL ATELE T basos 1 % not estab. normal Not Available [facility] ([facility]) [address] [place], [address], 11/13/2023 06:09:16 11/12/19 24 11/13/2023 CBC WITH DIFFE RENTI AL/PL ATELE T immature cells FLUSH TESTER Not Available [facility] ([facility]) [address] [place], [address], 11/13/2023 06:09:16 11/12/19 24 11/13/2023 CBC WITH DIFFE RENTI AL/PL ATELE T neutrophils (absolute) 4.1 x10e3 /uL 1.4-7. 0 normal Not Available [facility] ([facility]) [address] [place], [address], 11/13/2023 06:09:16 11/12/19 24 11/13/2023 CBC WITH DIFFE RENTI AL/PL ATELE T lymphs (absolute) 1.1 x10e3 /uL 0.7-3. 1 normal Not Available [facility] ([facility]) [address] [place], [address], 11/13/2023 06:09:16 11/12/19 24 11/13/2023 CBC WITH DIFFE RENTI AL/PL ATELE T monocytes(ab solute) 0.4 x10e3 /uL 0.1-0. 9 normal Not Available [facility] ([facility]) [address] [place], [address], 11/13/2023 06:09:16 11/12/19 24 11/13/2023 CBC WITH DIFFE RENTI AL/PL ATELE T eos (absolute) 0.1 x10e3 /uL 0.0-0. 4 normal Not Available [facility] ([facility]) [address] [place], [address], 11/13/2023 06:09:16 11/12/19 24 11/13/2023 CBC WITH DIFFE RENTI AL/PL ATELE T baso (absolute) 0.1 x10e3 /uL 0.0-0. 2 normal Not Available [facility] ([facility]) [address] [facility], [place], [address], 11/13/2023 06:09:16 11/12/19 24 11/13/2023 CBC WITH DIFFE RENTI AL/PL ATELE T immature granulocytes 0 % not estab. Not Available [facility] ([facility]) [address] [facility], [place], [address], 11/13/2023 06:09:16 11/12/19 24 11/13/2023 CBC WITH DIFFE RENTI AL/PL ATELE T immature grans (abs) 0.0 x10e3 /uL 0.0-0. 1 Not Available [facility] ([facility]) [address] [facility], [place], [address], 11/13/2023 06:09:16 11/12/19 24 11/13/2023 CBC WITH DIFFE RENTI AL/PL ATELE T NRBC FLUSH TESTER Not Available [facility] ([facility]) [address] [facility], [place], [address], 11/13/2023 06:09:16 11/12/19 24 11/13/2023 CBC WITH DIFFE RENTI AL/PL ATELE T hematology comments: FLUSH TESTER Not Available [facility] ([facility]) [address] [facility], [place], [address], 11/13/2023 06:09:16 11/12/19 24 11/13/2023 BASIC METAB OLIC PANEL (8) glucose 98 mg/dL 70-99 normal Not Available [facility] ([facility]) [address] [place], [address], 11/13/2023 06:09:17 11/12/19 24 11/13/2023 BASIC METAB OLIC PANEL (8) BUN 15 mg/dL 8-27 normal Not Available [facility] ([facility]) [address] [place], [address], 11/13/2023 06:09:17 11/12/19 24 11/13/2023 BASIC METAB OLIC PANEL (8) creatinine 0.99 mg/dL 0.57-1 .00 normal Not Available [facility] ([facility]) [address] [place], [address], 11/13/2023 06:09:17 11/12/19 24 11/13/2023 BASIC METAB OLIC PANEL (8) eGFR 60 mL/mi n/1.7 3 >59 normal Not Available [facility] ([facility]) [address] [place], [address], 11/13/2023 06:09:17 11/12/19 24 11/13/2023 BASIC METAB OLIC PANEL (8) BUN/creatini ne ratio 15 12-28 normal Not Available [facility] ([facility]) [address] [facility] [place], [address], 11/13/2023 06:09:17 11/12/19 24 11/13/2023 BASIC METAB OLIC PANEL (8) sodium 143 mmol/ L 134-14 4 normal Not Available [facility] ([facility]) [address] [facility] [place], [address], 11/13/2023 06:09:17 11/12/19 24 11/13/2023 BASIC METAB OLIC PANEL (8) potassium 4.4 mmol/ L 3.5-5. 2 normal Not Available [facility] ([facility]) [address] [facility] [place], [address], 11/13/2023 06:09:17 11/12/19 24 11/13/2023 BASIC METAB OLIC PANEL (8) chloride 106 mmol/ L 96-106 normal Not Available [facility] ([facility]) [address] [facility], [place], [address], 11/13/2023 06:09:17 11/12/19 24 11/13/2023 BASIC METAB OLIC PANEL (8) carbon dioxide, total 21 mmol/ L 20-29 normal Not Available [facility] ([facility]) [address] [facility] [place], [address], 11/13/2023 06:09:17 11/12/19 24 11/13/2023 BASIC METAB OLIC PANEL (8) calcium 9.1 mg/dL 8.7-10 .3 normal Not Available [facility] ([facility]) [address] [facility] [place], [address], 11/13/2023 06:09:17 03/16/19 25 03/17/2024 COMP. METAB OLIC PANEL (14) glucose 98 mg/dL 70-99 normal Not Available [facility] ([facility]) [address] [facility] [place], [address], 03/17/2024 06:08:15 03/16/19 25 03/17/2024 COMP. METAB OLIC PANEL (14) BUN 18 mg/dL 8-27 normal Not Available [facility] ([facility]) [address] [facility] [place], [address], 03/17/2024 06:08:15 03/16/19 25 03/17/2024 COMP. METAB OLIC PANEL (14) creatinine 1.06 mg/dL 0.57-1 .00 above high normal Not Available [facility] ([facility]) [address] [facility] [place], [address], 03/17/2024 06:08:15 03/16/19 25 03/17/2024 COMP. METAB OLIC PANEL (14) eGFR 55 mL/mi n/1.7 3 >59 below low normal Not Available [facility] ([facility]) [address] [facility] [place], [address], 03/17/2024 06:08:15 03/16/19 25 03/17/2024 COMP. METAB OLIC PANEL (14) BUN/creatini ne ratio 17 12-28 normal Not Available [facility] ([facility]) [address] [facility] [place], [address], 03/17/2024 06:08:15 03/16/19 25 03/17/2024 COMP. METAB OLIC PANEL (14) sodium 141 mmol/ L 134-14 4 normal Not Available [facility] ([facility]) [address] [facility] [place], [address], 03/17/2024 06:08:15 03/16/19 25 03/17/2024 COMP. METAB OLIC PANEL (14) potassium 4.3 mmol/ L 3.5-5. 2 normal Not Available [facility] ([facility]) [address] [facility] [place], [address], 03/17/2024 06:08:15 03/16/19 25 03/17/2024 COMP. METAB OLIC PANEL (14) chloride 102 mmol/ L 96-106 normal Not Available [facility] ([facility]) [address] [facility] [place], [address], 03/17/2024 06:08:15 03/16/19 25 03/17/2024 COMP. METAB OLIC PANEL (14) carbon dioxide, total 22 mmol/ L 20-29 normal Not Available [facility] ([facility]) [address] [facility] [place], [address], 03/17/2024 06:08:15 03/16/19 25 03/17/2024 COMP. METAB OLIC PANEL (14) calcium 9.8 mg/dL 8.7-10 .3 normal Not Available [facility] ([facility]) [address] [facility] [place], [address], 03/17/2024 06:08:15 03/16/19 25 03/17/2024 COMP. METAB OLIC PANEL (14) protein, total 7.4 g/dL 6.0-8. 5 normal Not Available [facility] ([facility]) [address] [place], [address], 03/17/2024 06:08:15 03/16/19 25 03/17/2024 COMP. METAB OLIC PANEL (14) albumin 4.6 g/dL 3.8-4. 8 normal Not Available [facility] ([facility]) [address] [place], [address], 03/17/2024 06:08:15 03/16/19 25 03/17/2024 COMP. METAB OLIC PANEL (14) globulin, total 2.8 g/dL 1.5-4. 5 Not Available [facility] ([facility]) [address] [place], [address], 03/17/2024 06:08:15 03/16/19 25 03/17/2024 COMP. METAB OLIC PANEL (14) bilirubin, total 0.4 mg/dL 0.0-1. 2 normal Not Available [facility] ([facility]) [address] [place], [address], 03/17/2024 06:08:15 03/16/19 25 03/17/2024 COMP. METAB OLIC PANEL (14) alkaline phosphatase 72 IU/L 44-121 normal Not Available [facility] ([facility]) [address] [place], [address], 03/17/2024 06:08:15 03/16/19 25 03/17/2024 COMP. METAB OLIC PANEL (14) AST (SGOT) 18 IU/L 0-40 normal Not Available [facility] ([facility]) [address] [place], [address], 03/17/2024 06:08:15 03/16/19 25 03/17/2024 COMP. METAB OLIC PANEL (14) ALT (SGPT) 16 IU/L 0-32 normal Not Available [facility] ([facility]) [address] [facility] [place], [address], 03/17/2024 06:08:15 03/16/19 25 03/17/2024 LIPID PANEL cholesterol, total 203 mg/dL 100-19 9 above high normal Not Available [facility] ([facility]) [address] [facility] [place], [address], 03/17/2024 06:08:16 03/16/19 25 03/17/2024 LIPID PANEL triglyceride s 67 mg/dL 0-149 normal Not Available [facility] ([facility]) [address] [facility] [place], [address], 03/17/2024 06:08:16 03/16/19 25 03/17/2024 LIPID PANEL HDL cholesterol 91 mg/dL >39 normal Not Available [facility] ([facility]) [address] [facility] [place], [address], 03/17/2024 06:08:16 03/16/19 25 03/17/2024 LIPID PANEL VLDL cholesterol juan 12 mg/dL 5-40 Not Available [facility] ([facility]) [address] [facility] [place], [address], 03/17/2024 06:08:16 03/16/19 25 03/17/2024 LIPID PANEL LDL chol calc ([facility]) 100 mg/dL 0-99 above high normal Not Available [facility] ([facility]) [address] [facility] [place], [address], 03/17/2024 06:08:16 03/16/1903/17/2024 LIPID PANEL LDL calc comment: FLUSH TESTER Not Available [facility] ([facility]) [address] [facility] [place], [address], 03/17/2024 06:08:16 03/16/19 25 03/17/2024 HEMOG LOBIN A1C hemoglobin A1C 6.0 % 4.8-5. 6 above high normal Predi abete s: 5.7 - 6.4 Diabe radha: >6.4 Glyce eileen contr ol for adult s with diabe radha: <7.0 Not Available [facility] ([facility]) [address] [facility], [place], [address], 03/17/2024 06:08:16 03/16/19 25 03/17/2024 TSH RFX ON ABNOR MAL TO FREE T4 TSH 3.340 uIU/m L 0.450- 4.500 normal Not Available [facility] ([facility]) [address] [facility], [place], [address], 03/17/2024 06:08:17 11/12/19 24 11/12/2023 elect rocar diogr am No observ ation record ed. [email or web address] In-Office Order Internal Use Only DO Not Attach Compendium DO Not Attach Compendium, Do Not Delete/merge, [id number] 11/12/2023 09:37:03 11/12/19 24 elect rocar diogr am No observ ation record ed. [email or web address] In-Office Order Internal Use Only DO Not Attach Compendium DO Not Attach Compendium, Do Not Delete/merge, [id number] 11/12/2023 09:37:04 03/16/19 25 03/16/2024 XR, knee, 3 view Knee 3 Views Left Reason : pain in left knee COMPAR ROSENDO: None. FINDIN GS: There is no eviden ce of acute fractu re or disloc ation. Modera te tricom partme nt osteoa rthrit is worse at the medial knee compar tment. No eviden ce of joint effusi on. IMPRES ANJU: Modera te osteoa rthrit ic change s withou t eviden ce of acute fractu re or disloc ation. WSN: [id number] Orderi ng Physic reinaldo: Amilcar Lagunas Dictat ed By: Aislinn Aly MD Dictat ed Date/T courtney: 7:42 pm Review ed By: Aislinn Aly MD Signed By: Aislinn Aly MD O Signed Date/T courtney: 7:42 pm Transc ribed By: NAY Transc ribed Date/T courtney: 7:41 pm Patien t Class: Outpat ient [facility] (Outpt Imaging) [address] [place], [address], 03/18/2024 10:12:30 03/16/19 25 03/16/2024 XR, knee, 3 view No observ ation record ed. [email or web address] [address] [place], [address], 03/17/2024 17:02:38 03/16/19 25 03/16/2024 XR, knee, 3 view Knee 3 Views Right Reason : pain COMPAR ROSENDO: None. FINDIN GS: There is no eviden ce of acute fractu re or disloc ation. Mild tricom partme nt osteoa rthrit ic change s worse at the medial knee compar tment. There is no eviden ce of a joint effusi on. IMPRES ANJU: Mild osteoa rthrit ic change s. WSN: [id number] Orderi ng Physic reinaldo: Amilcar Lagunas Dictat ed By: Aislinn Aly MD O Dictat ed Date/T courtney: 7:45 pm Review ed By: Aislinn Aly MD O Signed By: Aislinn Aly MD O Signed Date/T courtney: 7:45 pm Transc ribed By: NAY Transc ribed Date/T courtney: 7:43 pm Patien t Class: Outpat ient [facility] (Outpt Imaging) [address] [place], [address], 03/18/2024 10:12:31 03/16/19 25 03/16/2024 XR, knee, 3 view No observ ation record ed. [email or web address] In-Office Order Internal Use Only DO Not Attach Compendium DO Not Attach Compendium, Do Not Delete/merge, [id number] 03/18/2024 08:46:57 03/17/19 25 03/16/2024 XR, hip + pelvi s, unila teral , 2 or 3 view XR Hip w/Pelv is 2-3 View Right Reason : pain in hip COMPAR ROSENDO: No releva nt FINDIN GS: There is no fractu re or disloc ation. There is minima l medial joint space narrow ing bilate rally with marked right greate r than left acetab ular osteop hyte format ion noted. Phlebo liths are presen t within the pelvis . IMPRES ANJU: Modera te osteoa rthrit ic change . WSN: [id number] Orderi ng Physic reinaldo: Amilcar Lagunas Dictat ed By: Taylor Weldon MD Dictat ed Date/T courtney: 9:12 am Review ed By: Taylor Weldon MD Signed By: Taylor Weldon MD Signed Date/T courtney: 9:12 am Transc ribed By: NAY Transc ribed Date/T courtney: 9:11 am Patien t Class: Outpat ient [facility] (Outpt Imaging) [address] , [place], [address], 03/18/2024 10:12:31 03/17/19 25 03/17/2024 XR, hip + pelvi s, unila teral , 2 or 3 view No observ ation record ed. [email or web address] In-Office Order Internal Use Only DO Not Attach Compendium DO Not Attach Compendium, Do Not Delete/merge, [id number] 03/18/2024 08:47:07 03/23/19 25 03/23/2024 MAMMO , scree mickey, digit al, bilat eral No observ ation record ed. [facility] [address], [place], [address], 03/24/2024 09:08:13 06/14/19 25 06/13/2024 US, pelvi s US Soft Tissue Pelvis / Buttoc ks Reason : R10.2 PELVIC AND PERINE AL PAIN ANAND; Clinic al Questi on(s): Other: COMPAR ROSENDO: None. FINDIN GS: High-r esolut ion, linear array imagin g of the superf icial soft tissue s of the right groin was perfor med in the area of the patien t's sympto ms. There is no sonogr aphica lly appare nt mass or fluid collec tion. No sonogr aphic eviden ce of inguin al hernia . IMPRES ANJU: Normal ultras ound examin ation WSN: [id number] Orderi ng Physic reinaldo: Amilcar Lagunas Dictat ed By: Lacho Escalera MD Dictat ed Date/T courtney: 11:54 a Review ed By: Lacho Escalera MD Signed By: Lacho Escalera MD Signed Date/T courtney: 11:54 am Transc ribed By: NAY Transc ribed Date/T courtney: 11:53 am Patien t Class: Outpat ient [facility] (Outpt Imaging) [address] [place], [address], 06/13/2024 12:44:38 06/14/1906/13/2024 US, butto ck No observ ation record ed. [email or web address] [facility] (Ultrasound) [address] [place], [address], 06/14/2024 09:18:49 Result Notes Documentation Provider Name and Address Organization Details Recorded Time Xr, Knee, 3 View : Knee 3 Views Left Reason: pain in left knee COMPARISON: None. FINDINGS: There is no evidence of acute fracture or dislocation. Moderate tricompartment osteoarthritis worse at the medial knee compartment. No evidence of joint effusion. IMPRESSION: Moderate osteoarthritic changes without evidence of acute fracture or dislocation. WSN: [id number] Ordering Physician: Aga Lagunas Dictated By: Susan Aly MD Dictated Date/Time: 03/16/24 7:42 pm Reviewed By: Susan Aly MD Signed By: Susan Aly MD Signed Date/Time: 03/16/24 7:42 pm Transcribed By: NAY Transcribed Date/Time: 03/16/24 7:41 pm Patient Class: Outpatient Aga Lagunas MD [address], [address], [facility] 03/17/2024 17:01:28 Xr, Knee, 3 View : Knee 3 Views Right Reason: pain COMPARISON: None. FINDINGS: There is no evidence of acute fracture or dislocation. Mild tricompartment osteoarthritic changes worse at the medial knee compartment. There is no evidence of a joint effusion. IMPRESSION: Mild osteoarthritic changes. WSN: [id number] Ordering Physician: Aga Lagunas Dictated By: Susan Aly MD Dictated Date/Time: 03/16/24 7:45 pm Reviewed By: Susan Aly MD Signed By: Susan Aly MD Signed Date/Time: 03/16/24 7:45 pm Transcribed By: NAY Transcribed Date/Time: 03/16/24 7:43 pm Patient Class: Outpatient Aga Lagunas MD [address], [address], [facility] 03/17/2024 17:01:57 Xr, Hip + Pelvis, Unilateral, 2 Or 3 View : XR Hip w/Pelvis 2-3 View Right Reason: pain in hip COMPARISON: No relevant FINDINGS: There is no fracture or dislocation. There is minimal medial joint space narrowing bilaterally with marked right greater than left acetabular osteophyte formation noted. Phleboliths are present within the pelvis. IMPRESSION: Moderate osteoarthritic change. WSN: [id number] Ordering Physician: Aga Lagunas Dictated By: Taylor Hernández MD Dictated Date/Time: 03/17/24 9:12 am Reviewed By: Taylor Hernández MD Signed By: Taylor Hernández MD Signed Date/Time: 03/17/24 9:12 am Transcribed By: NAY Transcribed Date/Time: 03/17/24 9:11 am Patient Class: Outpatient Aga Lagunas MD [address], [address], [facility] 03/17/2024 17:02:25 Problems Name Problem SNOMED Code Status Onset Date Resolution Date Notes Provider Name and Address Organization Details Recorded Time Malignan t neoplasm of kidney 701617691 Completed 08/25/2018 nephrect lacho 1983 Removal Reason: personal history Minnie Rosario michael [facility] 9 16:01:21 Knee pain Completed 06/09/2016 Carolina rodriguez [facility] 7 10:35:39 Hyperlip idemia 59241833 Active [facility]rit[facility] shannon [facility] 2 09:52:15 Vitamin D deficien cy 31797293 Active [facility]annon [facility] 2 09:52:15 Osteopen ia 967271151 Active Eleniju rodriguez [facility] 2 14:23:43 History of primary malignan t neoplasm of kidney 084442119 Active 2018 nephrect lacho 1983 Minnie Rosario michael [facility] 9 16:02:04 History of lacunar cerebrov ascular accident 75724337185 101 Active 2021 DENNIS Collins [facility] 2 09:52:15 [place]we[place] ht 822508204 Active 2021 [facility]annon [facility] 09:52:15 Sciatica 48281379 Completed 202103/13/2023 Aga Lagunas MD [address] [facility] [address], [place], [address] , [facility] 4 14:08:46 Restless legs syndrome 03328486 Active 2023 Aga Lagunas MD [address] [facility] [address], [place], [address] , [facility] 4 14:08:59 Prediabe radha 412298848 Active 2023 Aga Lagunas MD [address], [place], [address] , [facility] 4 08:46:30 Gouty arthriti s of left foot 07029473718 53705 Active 2023 Raymundo Swanson, [facility] [address], [place], [address] , [facility] 4 11:26:24 Body mass index 25-29 - overweig ht 185315458 Active 2023 Raymundo Swanson, [facility] [address], [place], [address] , [facility] 4 11:34:18 [facility] l hyperten anju 20075064 Active 2024 Aga Lagunas MD [address], [place], [address] , [facility] 5 17:17:21 Problem Notes None recorded. Procedures Surgical History Date Name Laterality Status Provider Name and Address Organization Details Recorded Time 5 Most Recent Mammogram completed Amrita solomon MA [facility] 09/13/2024 13:29:10 5 Advanced Care Planning completed Aga Lagunas MD [address] [address], [place], [address], [facility] 03/16/2024 12:04:07 4 Advanced Care Planning completed Minnie Rosario [facility] 03/18/2023 10:39:33 4 Cataract Surgery completed Amrita solomon MA [facility] 03/16/2024 11:28:29 2 Advanced Care Planning completed Aga Lagunas MD [address] [address], [place], [address], [facility] 01/01/2022 07:59:39 1 Dxa bone density dusty vrt fx completed Sabrina Mccord [facility] 02/13/2022 14:21:40 1 excision of uterine polyp completed Amrita solomon MA [facility] 03/16/2024 11:29:07 9 Mini-Cog Test completed Adoredominique Moreno [facility] 08/24/2018 14:22:59 7 Mammogram screening completed Marielle Rivas [facility] 12/26/2016 14:20:06 7 Fall Risk Assessment completed Carolina Mishra [facility] [place] 12/16/2016 10:03:13 7 Mini-Cog Test completed Carolina Mishra MA [facility] 12/16/2016 09:59:35 7 Date of Last [facility] 10/07/2016 15:31:43 7 Colonoscopy [facility] 10/07/2016 15:31:37 6 Fall Risk Assessment completed Angeli Payne [facility] 10/16/2015 10:12:07 6 Mini-Cog Test completed Angeli Payne MA [facility] 10/16/2015 10:12:19 6 Advanced Care Planning completed Angeli Payne MA [facility] 10/16/2015 10:01:24 3 Date of Last Pap Smear completed Jojo Rivera [facility] 10/19/2015 07:59:36 3 excision of right kidney completed Amrita solomon MA [facility] 03/16/2024 11:28:48 3 Tubal Ligation [facility] 01/01/2022 14:24:55 Imaging Results None recorded. Procedure Notes None recorded. Medical Equipment None Reported. Allergies Allergen ID Allergen Name Allergen Category Reaction Reaction Severity Criticality Documentation Date Start Date Code Code System Note Provider Name and Address Organization Details Recorded Time 10644 Non-stero idal anti-infl ammatory agent (substanc e) medicatio n Not available Not available Not available 01/29/2022 00957 5008 SNOMED due to nephr ectom y Amrita Giuliano taveras [place] null, [facility] 09:53:29 Medications Name Sig Start Date Stop Date Status Note LastModified by Organization Details LastModified Time meloxicam 15 mg tablet TAKE 1 TABLET BY MOUTH EVERY DAY FOR 30 DAYS 01/01 completed Not Available Not Available Not Available famotidin e 40 mg tablet TAKE 1 TABLET EVERY DAY BY ORAL ROUTE BEFORE MEALS FOR 90 Days 10/23 completed Not Available Not Available Not Available prednison e 20 mg tablet TAKE 1 TABLET BY MOUTH EVERY DAY FOR 5 DAYS 11/11 completed Not Available Not Available Not Available terconazo le 0.8 % vaginal cream Insert 1 applicat orful every day by vaginal route for 3 days. 01/01 completed Not Available Not Available Not Available peg-elect rolyte solution 420 gram oral solution 09/08 completed Not Available Not Available Not Available oxycodone -acetamin ophen 5 mg-325 mg tablet 12/16 completed Not Available Not Available Not Available hydromorp carmen 2 mg tablet 09/08 completed Not Available Not Available Not Available tamsulosi n 0.4 mg capsule 09/08 completed Not Available Not Available Not Available gabapenti n 100 mg capsule TAKE 1 CAPSULE BY MOUTH THREE TIMES A DAY FOR 3 DAYS 03/13 completed Not Available Not Available Not Available clobetaso l 0.05 % topical ointment 1 APPLICAT ION TO AFFECTED AREA EXTERNAL LY EVERY OTHER NIGHT FOR A MONTH THEN THRICE A WEEK 90 DAYS active Not Available Not Available No t Available estradiol 0.01% (0.1 mg/gram) vaginal cream USE 1 GRAM TO THE AFFECTED AREA TWICE WEEKLY active Not Available Not Available No t Available methylpre dnisolone 4 mg tablets in a dose pack TAKE 6 TABLETS ON DAY 1 DIRECTED ON PACKAGE AND DECREASE BY 1 TAB EACH DAY FOR A TOTAL OF 6 DAYS 03/13 completed Not Available Not Available Not Available Vitamin D3 25 mcg (1,000 unit) capsule 4-5 capsules po daily active 03/16/19 25 increase d from [address] LAGUNAS Not Available Not Available Not Available rosuvasta tin 10 mg tablet TAKE 1 TABLET EVERY EVENING active Not Available Not Available No t Available Multivita min 50 Plus 1 tab daily orally 08/25 completed Not Available Not Available Not Available cholecalc iferol (vitamin D3) 25 mcg (1,000 unit) tablet 01/20 completed Not Available Not Available Not Available Vitamin D3 50 mcg (2,000 unit) capsule Take 1 capsule every day by oral route. 06/06 completed Not Available Not Available Not Available Vitals Date Recorded Body height Body mass index (BMI) Body weight Heart rate Oxygen saturation Body temperature Systolic And Diastolic Provider Name and Address Organization Details Last Updated DateTime 5 154.94 cm 29.9 kg/m2 13334.5 9 g 52 /min 99 % 98 [degF] 157/80 mm[Hg] Amrita taveras MA [facility] 5 11:26:30 Date Recorded Body height Heart rate Body mass index (BMI) Body weight Oxygen saturation Body temperature Systolic And Diastolic Provider Name and Address Organization Details Last Updated DateTime 5 154.94 cm 61 /min 30.6 kg/m2 45572.9 6 g 99 % 98.3 [degF] 138/79 mm[Hg] Amrita taveras MA [facility] [place] 5 15:40:55 Date Recorded Body height Body mass index (BMI) Body weight Heart rate Oxygen saturation Body temperature Systolic And Diastolic Provider Name and Address Organization Details Last Updated DateTime 4 154.94 cm 29.7 kg/m2 26685 g 69 /min 97 % 98.2 [degF] 133/77 mm[Hg] Summer zapata MA [facility] 4 11:12:19 Date Recorded Body height Body mass index (BMI) Body weight Heart rate Oxygen saturation Body temperature Systolic And Diastolic Provider Name and Address Organization Details Last Updated DateTime 5 154.94 cm 30.6 kg/m2 97085.9 6 g 60 /min 97 % 97.3 [degF] 126/73 mm[Hg] Amrita taveras [facility] [place] 5 13:33:06 Date Recorded Systolic And Diastolic Provider Name and Address Organization Details Last Updated DateTime 11/12/2023 126/76 mm[Hg] Aaliyah RIVERA [address] [address], [place], [address], [facility] 11/12/2023 09:11:28 Date Recorded Body height Body mass index (BMI) Body weight Heart rate Oxygen saturation Body temperature Systolic And Diastolic Provider Name and Address Organization Details Last Updated DateTime 4 154.94 cm 29.9 kg/m2 04962.5 9 g 56 /min 99 % 97.9 [degF] 148/74 mm[Hg] Carolina Arevalo [facility] [place] 4 08:45:21 Social History Question Answer Notes LastModified by Organizat ion Details LastModified Time Tobacco Smoking Status Never Smoker Petra rodriguez [facility] 07/06/2014 09:50:09 Is Blood Transfusion Acceptable In An Emergency? Yes Information not available 10/16/2015 What Is Your Level Of Caffeine Consumption? Moderate 2-3 Cups Of Coffee Daily Information not available 09/03/2021 How Much Tobacco Do You Chew? None Information not available 10/16/2015 What Type Of Diet Are You Following? REGULAR Information not available 12/16/2016 Live Alone Or With Others? With Others Information not available 01/29/2022 Do You Take Precautions To Prevent Distracted Driving? Yes Information not available 10/16/2015 How Often Do You Need To Have Someone Help You When You Read Instructions, Pamphlets, Or Other Written Material From Your Doctor Or Pharmacy? Never Information not available 10/16/2015 Have You Served In The ? No Information not available 12/16/2016 What Was The Date Of Your Most Recent Tobacco Screening? 09/13/2024 Information not available 09/13/2024 How Many Children Do You Have? 3 Corey, Nasim, And Kishore Information not available 01/01/2022 Do You Use Your Seat Belt Or Car Seat Routinely? Yes Information not available 01/01/2022 Seat Belts Used Routinely Yes Information not available 01/29/2022 Are You Sexually Active? Yes Information not available 10/16/2015 Smoke Alarm In Home Yes Information not available 01/29/2022 Do You Have Smoke And Carbon Monoxide Detectors In Your Home? Yes Information not available 01/01/2022 Are You Passively Exposed To Smoke? No Information not available 01/01/2022 How Much Tobacco Do You Smoke? No Information not available 01/01/2022 Do You Use Sunscreen Routinely? No Information not available 10/16/2015 Sex: Unknown Functional Status Question Answer Note LastModified by Organizat ion Details LastModified Time Do you use any illicit or recreational drugs? No Information not available 01/29/2022 Do you or have you ever used any other forms of tobacco or nicotine? No Information not available 01/29/2022 What is your level of alcohol consumption? None Information not available 07/06/2014 Do you or have you ever used smokeless tobacco? Never used smokeless tobacco Information not available 01/01/2022 Are you currently employed? No retired Information not available 09/03/2021 Are you able to walk independently without assistance or assistive devices? YESWOREST Information not available 01/29/2022 Are you able to care for yourself independently? 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 Moderate 45 minutes a day walking Information not available 07/06/2014 Mental Status None recorded. Family History Relationship Description Onset Age of this Age Resolved Age Notes LastModified by Organization Details LastModified Time Mother Myocardial infarction 56 Not available 01/29 09:43:20 Mother Toxic effect of ethyl alcohol Not available 2021 09:43:20 Father Hypertensive disorder mdalessandro Not available 11/2015 10:51:12 Father Myocardial infarction 70 colon polyps Not available 01/29/2022 09:43:20 Brother Polyp of colon 45 bro. is 55/ Not available 01/29/2022 09:43:20 Sister Cardiomyopat hy Not available 2021 09:43:20 Medical History Condition Response Other N Gout N Blood Diseases N Kidney Stones Y Hyperthyroidism N Breast Cancer N Lung Disease N COPD N Depression N Hypothyroidism N Defects or Inherited Disease N Anesthesia Complications N Headaches/Migraines N Varicose Veins N Anxiety Disorder N Obesity Y Vision or Eye Problems N Arthritis Y Head Injury/Concussion N Polyps N Infertility N Congenital Anomalies N Acid Reflux (GERD) N Cancer Y Stroke N ADHD N Endometriosis N High Cholesterol Y Liver Disease N Fibromyalgia N Kidney Disease N Heart Problems N Ear or Hearing Problems N Hospitalizations N Thyroid Problems N GI Problems N Acne N Skin Problems N Eating Disorder N Anemia N Constipation N Bladder Problems N Mental Illness N Ovarian Cancer N Diabetes N Blood Transfusions N Seizures/Epilepsy N Tuberculosis N AIDS/HIV N Congestive Heart Failure (CHF) N Eczema N Diverticulitis N Abuse/Domestic Violence N Asthma N Allergies N Reflux/GERD N Hepatitis N Pulmonary Embolism N Hypertension N Osteoporosis N Chicken Pox N Autism Spectrum Disorder (ASD) N Gynecological History Statement/Question Response Date of Last Pap Smear 11/16/2012 Date of Last Colonoscopy 09/29/2016 Most Recent Mammogram 03/23/2024 Most Recent Bone Density Obstetrics History GPAL:G 0 P 0 0 0 0 Immunizations Vaccine Type Date Status Note Provider Billy leblanc and Address Organization Details Recorded Time COVID-19, mRNA, LNP-S, PF, 30 mcg/0.3 mL dose 06/09/19 21 completed DENNIS Mejias, [facility] 01/29/2022 09:52:16 COVID-19, mRNA, LNP-S, PF, 30 mcg/0.3 mL dose 05/19/19 21 completed DENNIS Mejias, [facility] 01/29/2022 09:52:16 Tdap 07/07/19 15 completed DENNIS Mejias [facility] 01/29/2022 09:52:16 Influenza, high-dose, trivalent, PF 12/17/19 17 cancelled patient objection Not Available [facility] 03/26/2019 02:22:21 zoster recombinant 08/25/19 19 cancelled patient objection Not Available [facility] 03/26/2019 02:22:20 Influenza, high-dose, trivalent, PF 03/16/19 25 completed DENNIS Mejias, [facility] 03/16/2024 16:05:07 Past Encounters Encounter ID Performer Location Encounter Start Date Encounter Closed Date Diagnosis/Indication Diagnosis SNOMED-CT Code Diagnosis ICD10 Code Diagnosis IMO Codes Diagnosis Note [id number] Nikunj huynh MD Main Office [address] [facility] [address] 07/06/2014 09:41:13 07/06/2014 10:51:10 Adult health examination 372676991 Body mass index 30+ - obesity 101087301 History of hematuria 948060034 benign cause per [facility], despite hx of renal cell cancer/ cystoscopy done. No f/u needed Family his tory of polyp of colon 268803724 [id number] Nikunj huynh MD Main Office [address] [place] [address] 10/16/2015 09:49:56 10/16/2015 10:47:30 Adult health examination 407354809 Z00.00 At [facility] risk for falls 162551797 Z91.81 Advance di rective discussed with patient 601451614 Z71.89 Hyperlipidemia 55638744 E78.5 Vitamin D deficiency 347 15651 E55.9 Screening for malignant neoplasm of colon 701038584 Z12.11 History of carcinoma 275 008085 Z85.9 right kidney removed 1982/ see last note from [facility] [id number] Nikunj huynh MD Main Office [address] [address] [place] [address] 01/11/2016 13:44:39 01/11/2016 15:13:07 Vertigo 854467212 R42 pt has meclizine/ ok to use this prn/ pt saw Dr Lynn/ALVARO in 1999 for similar episode Hyperkalemia 52465037 E8 7.5 Bradycardia 24178453 R00 .1 [id number] Nikunj huynh MD Main Office [address] [address] [place] [address] 06/09/2016 10:32:31 06/09/2016 11:26:14 Hyperlipidemia 60502071 E78.5 Vertigo 481958311 R42 pt has meclizine/ ok to use this prn/ pt saw Dr Lynn/ALVARO in 1999 for similar episode [id number] Nikunj huynh MD Main Office [address] [address] 08/25/2016 10:21:15 08/25/2016 10:59:55 [id number] Nikunj huynh MD Main Office [address] [address] 09/08/2016 11:13:21 09/08/2016 12:43:29 Kidney stone 85900953 N20.0 pt to consider HCT [id number] Nikunj huynh MD Main Office [address] [address] 2016 10:46:02 2016 11:33:59 Brachial (cervical) neuritis 085193871 M54.12 [id number] Nikunj huynh MD Main Office [address] [address] 12/16/2016 09:58:02 12/16/2016 10:53:49 Adult health examination 004177292 Z00.00 Immunization refused 275 864373 Z28.20 Influenza vaccine needed 5574505900 106 Z23 Screening for malignant neoplasm of breast 750251108 Z12.39 Early satiety 422184009 R68.81 Hyperlipidemia 23944990 E78.5 2017/ pt declines statin [id number] Haider Huizar MD Main Office [address] [facility] [address] [facility] [place] [address] 08/24/2018 14:14:23 08/24/2018 15:56:54 Adult health examination 606222224 Z00.00 Palpitations 19716664 R0 0.2 was wearing 30 day holter as per card - she stopped a few day ago d/t erosion of skin, using aloe -- rec call card - see if okay to stop p 26 days of data, and use triple abx ointment -- call if dev cellulitis (no evidence today) -- has f/u c card next month Hyperlipidemia 60482501 E78.5 Vitamin D deficiency 347 18969 E55.9 Varicella vaccination 68 697253 Z23 Atypical chest pain 1025 30683 R07.89 ? if completely neg. w/u c card, then could this be d/t undiagnose d gerd - trial c pepcid 2x/day x few wks Fatigue 65372599 R53.83 Body mass index 30+ - obesity 199316312 Z68.31 Obesity 757670006 E66.9 History of primary malignant neoplasm of kidney 089667183 Z85.528 h/o nephrectom y - cont to f/u c Dr. Suarez yearly - did have kidney stone last yr - labs on 6..19 - cr 0.9, nl cbc [id number] Aga Lagunas MD Main Office [address] [facility] [address] [facility] [place] [address] 09/03/2021 09:35:56 09/03/2021 10:53:37 Near syncope 806635591 R55 Seen by [facility] had echo/ecg/a nd holter, but notes has to redo due to malfunctio n.Will get additional labs, mag and cmp done at [facility] and reviewed.C ont. ongoing work up with [facility].Orth ostatic negGAD/PHQ neg.additi onal labs ordered.Al though not typical will get carotid doppler for completene ss however no overt bruit heard on auscultati on.Will get MRI to ensure no neurologic al process.Katharina duran neg.neuro appears intact. If studies wnl will refer to neuro to see if eeg needed. Diarrhea 93937404 R19.7 Notes lower abd pain at times.thin ks associated with gas, notesNotes colo up to date. Abdominal pain 17675701 R10.9 disregard this already tied to order so could not cancel Eruption 248524465 R21 2/2 to holter pads, Patient to try otc hydorcorti sone if gate attendant improvemen t will send more potent steroid. Upper abdominal pain 831 53448 R10.10 To give stool sample first then start pepcid.CBC orderedepi gastric pain non radiating. [id number] Aga Lagunas MD Main Office [address] [facility] [address] [facility] [place] [address] 09/18/2021 07:56:33 09/19/2021 15:22:56 Near syncope 057546289 R55 Seen by cards had echo/ecg/a nd holter, but notes has to redo due to malfunctio n.Has not had any sx since, will hold neuro eval for now Diarrhea 59656830 R19.7 Notes resolved Upper abdominal pain 831 57125 R10.10 Notes resolved. History of lacunar cerebrovascular accident 4112476351 9101 Z86.73 Will start statin discussed ASA and statin useSide affects discussedW ill check lft and chol in Dec. [id number] Aga Lagunas MD Main Office [address] [facility] [address] [facility] [place] [address] 10/23/2021 13:37:08 10/23/2021 14:15:42 Sciatica 24953426 M54.31 Inflammati on of the R.sciatic nerve and mild trochanter ic bursitis of the hip. WE will use meloxicam 15 mg daily for antiinflam matory effect and add Tylenol ES as needed for pain. Sciatic exercise adn back stretches daily, heat applicatio n advised. Re evaluate in 2-4 weeks if pain is persistent or worse. [id number] Aga Lagunas MD Main Office [address] [facility] [address] [facility] [address] 01/01/2022 14:22:04 01/01/2022 15:12:42 Adult health examination 709719285 Z00.00 Patient was counseled on healthy diet, exercise and nutrition due to Body mass index is ... kg/m . Last Colonoscop y:Date: 09/29/16Res ult: no polypsPlan : Per GI repeat 5yrs, order placed. Last Mammogram: Date: 11/13/21Resu lt: Birad-1Pla n: cont surveilanc e. Last Pap smearDate: Result:Unique n: past age for screening Bone density scanDate:R esult:Plan : had done at event manager tells me wnl. Vaccines:T dAP: 07/06/14Zos ter rec: script providedPC V20: Script providedIn fluenza: declined.C ovid: 05/18/20, 06/08/20, bivalent advised. Routine labs reviewed Immunizati on status reviewed. Will screen based on risk factors. Regular dental and ophtho care advised as well as seat belt and sunscreen use. Distracted driving discussed. Medication reconciled . Advance directives discussed. Advance di rective discussed with patient 818665384 Z71.89 Administra tion of pneumococcal vaccine 36707869 Z23 Varicella vaccination 68 201995 Z23 Influenza vaccination declined 933310188 Z28.21 [id number] Aga Lagunas MD Main Office [address] [facility] [address] [place] [address] 01/29/2022 09:43:01 01/29/2022 10:19:46 Sciatica 96558708 M54.30 -Advised to start PT.-Will given medrol shankar avoid NSAID due to unilateral kidney.-Fo r severe pain she will take renal dose gabapentin .-Warm compress advised.-N o bone tenderness thus xray will likely not make a difference .Some muscle spasm, gabapentin should help with warm compress.R isk of sedation with gabapentin discussed. Red flag of bp discussed. BP borderline likely related to pain she is asymptomat ic, will monitor at home if persistant elevated she will let us know. [id number] Aga Lagunas MD Main Office [address] [facility] [address] [facility] [place] [address] 03/13/2023 13:49:17 03/13/2023 15:46:37 Adult health examination 622932247 Z00.00 Patient was counseled on healthy diet, exercise and nutrition due to Body mass index is 29.1 kg/m . Last Colonoscop y:Date: 09/29/16Res ult: no polypsPlan : Per GI repeat 5yrs, order placed. Last Mammogram: Date: 03/10/2023 Result: Birad-1Pla n: cont surveilanc e. Last Pap smearDate: Result:Unique n: past age for screening Bone density scanDate: 10/08/2020 Result: Osteopenia Plan: Done by event manager. weight bearing advised Vaccines:T dAP: 07/06/14Zos ter rec: script provided [id number] : Script provided againInflu teresita: declined.C ovid: 05/18/20, 06/08/20, encouraged updated vaccineRSV : Encouraged Routine labs reviewed Immunizati on status reviewed. Will screen based on risk factors. Regular dental and ophtho care advised as well as seat belt and sunscreen use. Distracted driving discussed. Medication reconciled . Advance directives discussed. Advance di rective discussed with patient 601875072 Z71.89 Administra tion of pneumococcal vaccine 51482404 Z23 Varicella vaccination 68 592453 Z23 Influenza vaccination declined 382643452 Z28.21 Screening for malignant neoplasm of colon 557319467 Z12.11 Fatigue 33247489 R53.83 Z00.00 Hyperlipidemia 95323936 E78.5 Z00.00 Vitamin D deficiency 347 35886 E55.9 Right uppe r quadrant pain 079917509 R10.11 will do labs, get us.Aware if pain worse, fever, chills then go to ED. [id number] David Balbuena MD Main Office [address] [place] [address] 08/04/2023 11:04:41 08/04/2023 11:37:38 Gouty arthritis of left foot 6626556110 480538 M1A.0720 Patient notes she can actually walk today, no inciting food intake (does eat legumes and oatmeal daily for years) or event that could have triggered gout but presentati on and hx fit otherwise. Will check uric acid, CBC and other labs. she would like to hold off on treatment as it seems to be improving on it's own. Should sx worsen please call/ return , tx would likely be with prednsione due to hx of nephrectom y. History of nephrectomy 6699176997 9104 Z90.5 Tick bite 16060667 W57.X XXA left posterior knee Body mass index 25-29 - overweight 764654567 E66.[address] referral. [id number] David Balbuena MD Main Office [address] [facility] [address] [place] [address] 11/12/2023 08:38:26 11/12/2023 09:13:17 Pre-surgery evaluation 264293491 Z01.818 No medical contraindi cations to proposed procedure. Damon Perioperat po Cardiac Risk was calculated and the risk for perioperat po [place] is 0.2%. May proceed to surgery as planned. pre-operat po medical clearance for bilateral cataract surgery 11/24/2023 (L) & 12/01/2023 (R) with Dr. Yumiko Rutledge (NPI#: [id number] ). Under MAC.-cbc w/ diff and BMP ordered-ek g; 1st degree AV block, no ST changes, follows with cardiology Cataract 762459566 H26.9 bilateral cataract surgery 11/24/2023 (L) & 12/01/2023 (R) with Dr. Yumiko Rutledge Hyperlipidemia 27639270 E78.5 [id number] Aga Lagunas MD Main Office [address] [facility] [address] [place] [address] 03/16/2024 11:12:24 03/16/2024 12:25:50 Adult health examination 141789021 Z00.00 Patient was counseled on healthy diet, exercise and nutrition due to Body mass index is 29.9 kg/m . Last Colonoscop y:Date: 09/29/16Res ult: no polypsPlan : Per GI repeat 5yrs, order placed. Last Mammogram: Date: 03/10/2023 Result: Birad-1Pla n: Done by event manager Last Pap smearDate: Result:Unique n: past age for screening Bone density scanDate: 03/10/23Resu lt: Osteopenia Plan: Done by event manager. weight bearing encouraged . Vaccines:T dAP: 07/06/14Zos ter rec: script provided [email or web address] : Script provided againInflu teresita: 03/16/24Covi d: Encouraged updated vaccine Routine labs ordered, will get limited labs as she had labs from specialist recently. Immunizati on status reviewed. Will screen based on risk factors. Regular dental and ophtho care advised as well as seat belt and sunscreen use. Distracted driving discussed. Medication reconciled . Advance directives discussed. Administra tion of pneumococcal vaccine 40264605 Z23 Varicella vaccination 68 617908 Z23 Screening for malignant neoplasm of colon 022172581 Z12.11 Hyperlipidemia 80874995 E78.5 Z00.00 Prediabetes 086222748 R7 3.03 Vitamin D deficiency 347 29393 E55.9 Increase otc vit D to 4000- 5000IU, follow up in 6 mo. Fatigue 04416674 R53.83 Z00.00 Restless l egs syndrome 44168400 G25.81 Influenza vaccine needed 5214134309 106 Z23 65 YEARS AND OLDER Pain of ri ght hip joint 9928060708 23876 M25.551 Will start with xray, conservati ve tx discussed, follow up in 2-3 weeks. Pain of le ft knee joint 8403355690 72334 M25.562 Will start with xray, conservati ve tx discussed, follow up in 2-3 weeks. Pain of ri ght knee joint 8073905318 99069 M25.561 Will start with xray, conservati ve tx discussed, follow up in 2-3 weeks. Advance di rective discussed with patient 439825270 Z71.89 MOLST and HCP discussed. Elevated blood-pressure reading without diagnosis of hypertension 817212604 R03.0 Has been checking bp at home, notes under 140/90. She will keep checking and bring cuff next visit, if still > 130/90, given her cva hx will start tx for htn.She is otherwise asymptomat ic for bp stand point.Life style changes discussed. followup 2-3 weeks. [id number] Aga Lagunas MD Main Office [address] [facility] [address] [facility] [place] [address] 06/06/2024 15:20:48 06/06/2024 16:23:25 Pain of right knee joint 1751877250 83209 M25.561 Pain of le ft knee joint 6605925170 32851 M25.562 Pain of ri ght hip joint 7260348058 41802 M25.551 Essential hypertension 33588770 I10 Inguinal pain 783659060 R10.2 [id number] Aga Lagunas MD Main Office [address] [facility] [place] [address] 09/13/2024 13:22:31 09/13/2024 13:57:58 Essential hypertension 08139100 I10 Leg length inequality 45 [id number] M21.70 [id number] Health Concerns Section Related Observation LastModified by Organization Detai ls LastModified Time None Recorded Concern Status LastModified by Organization Details LastModified Time None Recorded Advance Directives Directive None Recorded Payers Insurance Date Sequence Insurance Name Policy Number Policy Shaw Covered Member ID Shaw Member ID Guarantor Name 02/09/[address] [facility] (MEDICARE SUPPLEMENT) [id number] Keya Mcdonald [id number] Keya Mcdonald 02/09/2025 1 [place] [employer] Keya Mcdonald [id number] Keya Mcdonald 03/16/2024 1 [place] [id number] Keya Mcdonald [id number] Keya Mcdonald Notes Date Note Type Note Provider Name and Address Organization Details Recorded Time 08/04/19 24 text/htm l Generic HPI TemplateReported by [id number] yo F with hx right nephrectomy, lacunar CVA, HLD, pre DM.patient presents with c/o left foot pain. she notes pain was classic gout per her research. has pain in area of her bog toe, redness, swelling, excruciating pain, she did take tylenol but unable to take NSIADS.today is 1st day she has bene able to walk on it.has never had gout before.does not eat red meat, no alcohol, lo oxalate diet due to kidneys, no increased seafood intake.Was bit by a tick 1 month ago, went to derm and he removed- left posterior knee. > 24 hours, wood tick. Minnie rodriguez MA - [facility] 08/12/2023 12:42:17 11/12/19 24 text/htm l ROS as noted in the HPI Keya is a 73yr old F presents for pre-operative medical clearance for bilateral cataract surgery 11/24/2023 (L) & 12/01/2023 (R) with Dr. Yumiko Rutledge (NPI#: [id number]). Under MAC. Denies any acute complaints at this time. Pt notes of having 1 kidney, had right kidney removed in 1982. Has denies allergies, and has tolerated anesthesia in the past without complications. The patient does not follow w/ Cardiology and notes that he can walk multiple blocks and has no limitations with going up multiple flights of stairs before becoming symptomatic METS score ~ > 4. The patient currently denies chest pain, shortness of breath, palpitations, fever, chills, and nausea/vomiting. Minnie rodriguez, [facility] 11/18/2023 13:37:21 03/16/19 25 text/htm l Medicare Annual Wellness VisitReported by PatientSocial/Behavioral HistoryFor diet and nutrition, patient reportshealthy diet. For fracture risk, patient reportsno history of fractures. For physical activity, patient reportsdiscussed weightbearing activitiesanddiscussed exercise habits.Mental Status:For depression risk, patient reportsno significant changes in weight. For concentration and memory, patient reportsno memory lapses or loss. For speech/motor difficulties, patient reportsno speech difficulties.Functional AbilityFor home safety, patient reportsfire arms (locked)but reportsworking smoke/co detectors,use of seatbelts,good lighting in the home, andreviewed sun protection. For hearing, patient reportsno loss of hearing. For vision, patient reportsno vision problems. For activities of daily living, patient reportsable to bathe with limited or no assistance,able to contol urination and bowels,able to dress with limited or no assistance,able to feed self with limited or no assistance,able to get out of chair or bed with limited or no assistance,able to groom with limited or no assistance, andable to toilet with limited or no assistance. For instrumental activities of daily living, patient reportsable to do house work with limited or no assistance,able to grocery shop with limited or no assistance,able to manage medications with limited or no assistance,able to manage money with limited or no assistance,able to prepare meals with limited or no assistance, andable to use the phone with limited or no assistance. For falls risk assessment, patient reportsno fall since last visit. Here for PE, reviewed chronic medications and medical problems. Discussed screening guidelines as well as goals for fitness and weight management. Complaints of MSK pain agreed to get xray and return for follow up visit due to visit focus on AWE. No red flag sx. Aga Lagunas MD [address] [facility] [address], [place], [address], [facility] 03/16/2024 12:33:12 06/07/19 25 text/htm l Musculoskeletal PainReported by PatientHPIFor quality, patient reportsaching (right knee),sharp (left knee), anddull (right hip). For severity, patient reportsworsening. For associated symptoms, patient reportsweak limbsbut reportsno fever,no tingling,no numbness of the legs/feet, andon incontinence. For location, patient reportsright hipandbilateral knee. For duration, patient reportspresent for 6-12 months. For timing, patient reportsintermittentandpain at night (right hip). For alleviating factors, patient reportsrestandrelieved by changing position. For aggravating factors, patient reportsmovement/positioning.Al so notes to burring in right inguinal region region. Hypertension F/UReported by PatientHPIFor associated symptoms, patient reportsno dizziness,no lightheadedness,no chest pain,no shortness of breath,no palpitations,no edema, andno calf pain with exertion. For lifestyle, patient reportsregular exercise,limiting/avoiding salt,exercises 7 times/week, andexercises for 40 minutes/day. Follow up today for msk complaints and elevated bp. Aga Lagunas MD [address] [facility] [address], [place], [address], [facility] 06/06/2024 17:19:38 09/14/19 25 text/htm l The patient presents for blood pressure follow-up. She previously brought her home blood pressure cuff to her s visit, and it was confirmed to be accurate when compared to office readings. Today, she brought in her current home BP readings, which remain reassuring and generally below 130/90. Her in-office blood pressure today is also within target range. She denies any associated symptoms, including dizziness, lightheadedness, chest pain, shortness of breath, palpitations, or peripheral edema. She continues to exercise regularly ~7 days a week for approximately 40 minutes, and is mindful of her salt intake. Regarding musculoskeletal concerns, specifically hip and knee discomfort, she was recently evaluated by orthopedics and is scheduled to begin physical therapy. A limb length discrepancy was noted on last exam, and a referral to podiatry has been provided, xray did not suggest discolaction or fracture of the hip. Aga Lagunas MD [address] [address], [place], [address], [facility] 09/14/2024 08:15:58 OBGyn Episode No OBEpisode recorded.
--- OUTSIDE RECORDS SUMMARY | 2025-02-16 22:53 | XMS_ITS | Patient Health Record ---
Author Organization [facility] Address [address] [place] [address] Care Team Providers Care Senior Product Development Scientist Name Role Phone DR AGA LAGUNAS Primary Care Provider Unavail able Bettie Loco Unavailable [phone] Allergies No Known Allergies Reason For Referral No Information Medications Medication SIG (Take, Route, Frequency, Duration) Notes Start Date End Date Status Rosuvastatin Calcium 10 MG 1 tablet Oral ly Once a day; Duration: 30 day(s) Active Estradiol Vaginal Cream 0.01% 1 Gram Vaginally Twice a Week Active Vitamin D3 50 MCG (1999) 1 capsule Or ally Once a day Active Estradiol Vaginal Cream 0.01% 1 Gram to the affected area Vaginal/Vulva Twice a week; Duration: 90 Days 08/25/2024 Active Clobetasol Propionate 0.05 % 1 application to affected area Externally EVERY OTHER NIGHT FOR A MONTH THEN THRICE A WEEK; Duration: 90 days 08/25/2024 Active Clobetasol Propionate 0.05 % 1 application to affected area Externally TWICE A WEEK; Duration: 90 days 10/08/2022 Active Social History Tobacco Use: Social History Observation Description Date Details (start date - stop date) Never Smoker NA - NA AUDIT-C (Standard) Question Answer Notes Did you have a drink containing alcohol in the p ast year? 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) Active confirmed Problem Incomplete uterovaginal prolapse (579653597) Incomplete uterovaginal prolapse (N81.2) Active confirmed Problem Herniation of rectum into vagina (372025767) Rectocele (N81.6) Active confirmed Problem Localized morphea (044277668) Lichen sclerosus et atrophicus (L90.0) Active confirmed Problem Disorder of bone (43222374) Other specified disorders of bone density and structure, multiple sites (M85.89) Active confirmed Problem Cystocele (260095551) Cystocele, unspecified (N81.10) Active confirmed Problem Polyp of corpus uteri (63445930) Polyp of corpus uteri (N84.0) Active confirmed Problem Atrophy of vulva (448283648) Atrophy of vulva (N90.5) Active confirmed Problem Personal history of primary malignant neoplasm of kidney (464109377) Personal history of other malignant neoplasm of kidney (Z85.528) Active confirmed Problem Malignant tumor of kidney (618554067) Malignant neoplasm of kidney, 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) Active confirmed Major Problem Mitral valve disorder (70694679) Mitral valve disorders (424.0) Active confirmed Major Problem Female genital organ symptoms (117832120) Other specified symptom associated with female genital organs (625.8) Active confirmed Major Problem Menopausal symptom (90409384) Symptomatic menopausal or female climacteric states (627.2) Active confirmed Major Problem Gynecological examination normal (526817033881669) Routine gynecological examination (V72.31) Active confirmed Problem Screening for malignant neoplasm of colon (913645246) Special screening for malignant neoplasms, colon (V76.51) Active confirmed Major Vital Signs Temperature 97.8 degrees Fahrenheit 12/26/2024 Blood pressure diastolic 76 mm Hg 12/26/2024 Height 60.25 in 12/26/2024 Blood pressure systolic 138 mm Hg 12/26/2024 Weight 161 lbs 12/26/2024 BMI 31.18 kg/m2 12/26/2024 Encounters Encounter Location Date Provider Diagnosis [address] [facility] [facility] [address] [place] [address] 08/25/2024 Bettie Loco Lichen sclerosus et atrophicus L90.0 and Atrophy of vulva N90.5 [facility] [address] [facility] [facility] [address] [place] [address] 12/26/2024 Bettie Loco Lichen sclerosus et atrophicus L90.0 and Atrophy of vulva N90.5 Assessments Encounter Date Diagnosis (ICD Code) Assessment Notes Treatment Notes Treatment Clinical Notes Section Notes 08/25/2024 Lichen sclerosus et atrophicus (ICD-10 - L90.0) DISCUSSED FINDINGS WITH RECURRENCE OF LICHEN SCLEROSUS. APPLY CLOBETASOL OINTMENT Q OTHER NIGHT FOR A MONTH, THEN THRICE A WEEK. CHECK VULVA Q MONTH AND INCREASE OR DECREASE DOSE NEEDED. 12/26/2024 Lichen sclerosus et atrophicus (ICD-10 - L90.0) CONGRATULATED PAT FOR HER DILIGENCE. APPLY CLOBETASOL OINTMENT TWICE WEEKLY. CHECK VULVA Q 2 MONTHS AND INCREASE OR DECREASE DOSE NEEDED. 12/26/2024 Atrophy of vulva (ICD-10 - N90.5) CONTINUE APPLYING ESTRADIOL CREAM ALONG VULVA TWICE WEEKLY. 08/25/2024 Atrophy of vulva (ICD-10 - N90.5) DISCUSSED FINDINGS OF VULVAR ATROPHY. APPLY ESTRADIOL CREAM TWICE WEEKLY. DETAILED INSTRUCTIONS WERE GIVEN. APPLY VASELINE OR DESITIN 2 TO 3 TIMES PER DAY SPECIALLY BEFORE URINATING TO DECREASE BURNING. Plan Of Treatment Pending Test Test Name Order Date MAMMOGRAM, SCREENING 08/15/2020 MAMMOGRAM, SCREENING 11/01/2021 MAMMOGRAM, SCREENING 08/21/2023 Ultrasound : Retroperitoneal 08/15/2020 BONE DENSITY 10/23/2016 BONE DENSITY 08/15/2020 BONE DENSITY 11/04/2022 MM Digital Mammo Screening 08/21/2023 MM Digital Mammo Screening 08/15/2020 MM Digital Mammo Screening 11/04/2022 MM Digital Mammo Screening 11/01/2021 PELVIC ULTRASOUND W/TRANSVAGINAL 021 Next Appt Details Provider Name:Bettie corral, 08/23/2025 01:20:00 PM, [address], [address], [place], [address], Insurance Providers Payer Name Payer Address Payer Phone Subscriber Number Group Number Insured Name Patient Relationship to Insured Coverage Start Date Coverage End Date MEDICARE [address] KALA AKINS [id number] GLORIA IGLESIAS Self - patient is the insured [employer] [address] [place] [address] [id number] GLORIA IGLESIAS Self - patient is the insured Medical (General) History Medical History History ICD Code Other nonrheumatic mitral valve disorder s I34.8 Malignant neoplasm of unspecified kidney , except renal pelvis C64.9 Menopausal and female climacteric states N95.1 Other specified conditions a ssociated with female genital organs and menstrual cycle N94.89 Lichen sclerosus et atrophicus L90.0 Postmenopausal atrophic vaginitis N95.2 Atrophy of vulva N90.5 Polyp of corpus uteri N84.0 Rectocele N81.6 Cystocele, unspecified N81.10 Incomplete uterovaginal prolapse N81.2 Other specified disorders of bone densit y and structure, multiple sites M85.89 Prediabetes R73.03 Other abnormal glucose R73.09 Surgical History Surgery Date(Month/Year) Colonoscopy Right Nephrectomy 1982 [place] Teeth Kidney Stent 11/2016 Polypectomy (Truclear), D/C with Dr. Edwin richmond 10/16/20 Bilateral Tubal Ligation Hospitalization History Reason Date(Month/Year) See Surgical Hx 3 Vaginal Deliveries
== END 2025-02-16 16:15 | disposition home or self-care (01) ==
LOC: HO.HKAS 15:19
PROVIDERS: PCP Family Medicine; Visit Provider Internal Medicine Nephrology
DX: Z90.5 Acquired absence of kidney (principal); R80.8 Other proteinuria
CPT/HCPCS: 99214